=== PATIENT | female | born 1950 ===

== ENCOUNTER → 2022-01-31 09:47 | Outpatient (CLI) | payer MEDICARE, SELFPAY ==
[2022-01-31 12:42] LABS: COVID19 -Nasal RAPID Negative (Negative)
== END ==
PROVIDERS: Family Provider Family Medicine; PCP Family Medicine; Visit Provider Nurse Practitioner Family
DX: Z20.822 Contact with and (suspected) exposure to COVID-19 (principal)
CPT/HCPCS: 87635; C9803

== ENCOUNTER 2022-02-01 09:14 | Day surgery (SDC) | payer MEDICARE, SELFPAY ==
[2022-01-23 07:40] VITALS: BMI 28.3
[2022-02-01] VITALS (10 sets, daily range): BP systolic 92–117; BP diastolic 39–76; PULSE 65–90; RESP 10–20; TEMP 35.7–36.2; O2SAT 91–96; BMI 28.3
--- NOTE | 2022-02-01 06:00 | DI.RAD.S_ITS ---
PROCEDURE: XR KNEE RT 1TO2V INDICATIONS: prosthesis placement TECHNIQUE: 2 view(s) of the knee acquired. COMPARISON: None. FINDINGS: Bones: Patient is status post knee joint arthroplasty. Hardware components are in expected positions. Visualized bony structures are intact. Soft tissues: Overlying postoperative changes are noted. IMPRESSION: Expected immediate postoperative appearance, status post total right knee arthroplasty. Dictated by: Josemanuel Cheney M.D. on 02/01/2022 at 15:50 Approved by: Josemanuel Cheney M.D. on 02/01/2022 at 15:50
[2022-02-01] MEDS: LACTATED RINGERS 1,000 ML 42 ML IV (09:49)
[2022-02-01] MEDS: ACETAMINOPHEN 325 MG TABLET 975 MG PO (10:00)
[2022-02-01] MEDS: PREGABALIN 75 MG CAPSULE PO (10:00)
[2022-02-01] MEDS: CELECOXIB 200 MG CAPSULE PO (10:00)
--- NOTE | 2022-02-01 11:01 | PM.PREOP ---
Pre-operative Note COVID-19 COVID-19 status: Negative Result date/Date tested (Pos, Neg/Pending): 01/31/22 Interval Note History & Physical reviewed/Exam performed by Physician: Yes Changes to H&P: No
--- NOTE | 2022-02-01 11:14 | PM.OP.1 ---
Operative Date/Time/Diagnoses Date of procedure: 02/01/22 Time of procedure: 13:42 Pre-op diagnosis: Right knee osteoarthritis Post-op diagnosis: same Procedure & Clinicians Procedure: Right total knee replacement Same procedure as scheduled: Yes Indications: The patient has had progressively worsening right knee pain with radiographic changes consistent with arthritis. Non-operative management has failed and the patient has requested total knee replacement. The risks, benefits and alternatives to surgery were discussed with the patient prior to proceeding. Risks discussed included, but were not limited to, failure to relieve pain, stiffness, infection, nerve damage, deep venous thrombosis, pulmonary embolism, stroke, coma, heart attack, permanent paralysis and , as well as the potential need for eventual revision of the prosthetic. Surgeon: Marino Mcgovern Wind Turbine Erector: Jorge Rubio Click Yes if Unassisted: No Anesthesia Type: General, Spinal and Local Operative Notes Findings: Severe medial and patellofemoral osteoarthritis with large osteophytes. Closure Type: primary Specimen(s): none sent Prosthetic devices, grafts, tissues, transplants, or devices: Implants used in this procedure were manufactured by the [employer] and included the BCS II Journey total knee replacement with a size 4 right cobalt chromium femur, a size 3 right non porous tibial base plate, an 11 mm cross-linked polyethylene tibial insert and a 32 mm oval Jessi II patellar component. Applied: implant(s) Estimated Blood Loss (mL): 25 Blood products transfused: none Tourniquet time (min): 54 Procedure in detail: The patient was seen in the pre-operative area, where the patient identified the right knee as the operative site and this was marked with my initials. The patient received pre-operative antibiotics, and was taken to the operating room and placed on the operative table in the supine position. After satisfactory anesthesia, a full time staff interpreter out was performed. The right leg was encircled with a tourniquet about the proximal thigh, and the leg was prepared from the toes to the tourniquet with ChloroPrep in the usual fashion and draped through sterile drapes. The leg was elevated and exsanguinated with Eschmark bandage and the tourniquet inflated to 250 mmHg pressure. The knee was approached through an approximately 18 cm incision centered over the patella and carried into the knee through a medial parapatellar arthrotomy. The anterior osteophytes and soft tissues were removed. The rotational landmarks of [place]'s line and the transepicondylar axis were marked on the femur with electrocautery, and intramedullary guide holes for the femur and tibia were created. The distal femoral cut was made in 6 degrees of valgus using the intramedullary guide at the primary cut setting. The proximal tibial cut was then made using the intramedullary guide, taking 9 mm of bone off the less involved side. The extension gap was checked and the rotation of the femoral component confirmed with the gap balancing system. The anterior, posterior and chamfer cuts were then made. The posterior osteophytes and soft tissues were then removed. The posterior capsule was injected with part of a mixture of 60 ml 0.25% Marcaine mixed with 20 ml Exparel and 4 mg of morphine for post-operative pain control. The remainder of this mixture was injected into the capsule and subcutaneous tissues during cement curing. The tibia was prepared with the rotation set by an extra medullary guide. Trial tibial and femoral components were then placed and the intercondylar notch cut through the femoral trial. Range of motion was 0-135 degrees, with good stability throughout the range. The patella was then cut to accommodate the patellar prosthetic. There was no need for a lateral release. The trials were then removed, and the femoral hole plugged with a bone plug. The bone was prepared with pulsatile lavage, and dried with a sponge. Cement was applied and the final prosthetics placed. Excess cement was removed during and after cement curing. After confirming there was no extruded cement posteriorly, the final tibial insert was placed. The knee was copiously irrigated and the tourniquet deflated. Hemostasis was obtained. The capsule was closed with interrupted # 2 polyester suture. The subcutaneous layer was closed with 3-0 Vicryl, and the skin with a running 3-0 V-Lock suture and Dermabond. An Aquacel Ag dressing was applied and the patient was taken to recovery having tolerated the procedure well. Post-operative Condition: stable Disposition: PACU Plan for aftercare: The patient will be maintained on a standard total knee replacement protocol with weight bearing as tolerated. The patient will receive aspirin and sequential compression devices for DVT prophylaxis. The patient will be discharged home when safe for the home environment.
[2022-02-01] MEDS: CEFAZOLIN 2 GM/20 ML SYRINGE IV (12:03)
[2022-02-01] MEDS: TRANEXAMIC ACID 1,000 MG VIAL 1000 MG INJ ×2 (12:10→13:10)
--- NOTE | 2022-02-01 12:21 | SUR.OPER ---
Supine on padded OR bed. Pillow under head, arms secured on padded armboards <90 degree abduction. Safety belt across torso. Non-operative leg secured with tape over blanket over lower leg. Operative leg secured in [place] positioner. Foam padded brace at thigh of operative leg.
[2022-02-01] MEDS: BUPIVACAINE 0.25% (PF) 60 ML, EPINEPHrine 0.3 MG INJ (12:27)
[2022-02-01] MEDS: MORPHINE 4 MG/ML INJ INJ (12:27)
[2022-02-01] MEDS: BUPIVACAINE LIPOSOME 266 MG/20 ML VIAL INJ (12:41)
--- NOTE | 2022-02-01 14:06 | SUR.PHASEI ---
Report to Isabel DA SILVA
[2022-02-01] MEDS: LACTATED RINGERS 1,000 ML 100 ML IV (14:57)
--- NOTE | 2022-02-01 15:15 | PC.NURSE ---
Addendum entered by Radha Navarro R.N. 02/01/22 16:16: Pt feeling to lower extremities returning. Dsg CDI. B/P running in the low 100's Satisfactory post op course. Call light w/in reach, bed alarm on for pt safety. Continue w/plan of care. Original Note: Pt arrived from PACU @ 1420 Alert oriented. Denies discomfort at this time. Spo2 93% RA Continuous pulse ox applied. SCD on IVF infusing as per MD orders. Stable post op course. Call light w/in reach, bed alarm on for pt safety.
[2022-02-01] MEDS: IBUPROFEN 400 MG TABLET PO ×2 (16:09→20:56)
[2022-02-01] MEDS: ACETAMINOPHEN 325 MG TABLET 650 MG PO ×2 (16:09→20:55)
[2022-02-01] MEDS: ASPIRIN EC 81 MG TABLET PO (20:54)
[2022-02-01] MEDS: DOCUSATE 100 MG CAPSULE PO (20:54)
[2022-02-02 00:48] VITALS: RESP 16
[2022-02-02] MEDS: IBUPROFEN 400 MG TABLET PO ×4 (00:56→12:53)
[2022-02-02] MEDS: LACTATED RINGERS 1,000 ML 100 ML IV (00:58)
[2022-02-02 04:00] VITALS: BP 125/62; PULSE 73; RESP 16; TEMP 36.1; O2SAT 97
[2022-02-02] MEDS: OXYCODONE IR 5 MG TABLET PO ×3 (05:01→12:53)
[2022-02-02 06:41] LABS: Hematocrit 32.3 % (36-46); Hemoglobin 10.9 g/dL (12.0-16.0)
--- NOTE | 2022-02-02 07:30 | P.DS_ITS ---
History of Present Illness History of Present Illness Date Patient Seen: 02/02/22 Time Patient Seen: 07:31 Chief complaint: RT TKA *OPB* Discharge Providers Provider Date of admission: 02/01/2022 Discharge Date: 02/02/22 Primary care physician: Rashaun Alvarado MD Consults: 02/01/22 14:14 Consult to Discharge Planning Routine Comment: Consult to Physical Therapy Evaluate & Treat Comment: Physician Instructions: postop TKA protocol Consult to Respiratory Therapy Evaluate & Treat Comment: Physician Instructions: Evaluate and treat Discharge provider: Shalonda Nath PA-C Summary Hospital Course Discharge Diagnosis: s/p R TKA Hospital Course: Ms Wilkerson's hospital course was remarkable for foot drop on the right, which is likely due to nerve block given preoperatively. On POD#1 she was feeling well and wanted to go home. She was eating and voiding without difficulty. She was evaluated by PT prior to discharge. Exam Vital Signs (past 8 hours): - 02/02/22 00:48 02/02/22 04:00 Temperature 97.0 F L Pulse Rate 73 Respiratory Rate 16 16 Blood Pressure 125/62 Pulse Oximetry 97 Oxygen Delivery Method Room Air Oxygen Flow Rate 0 Narrative Exam Narrative: 5/5 strength in hip flexors, quadriceps, hamstrings, PF, EHL on right. DF 3/5 on right. 5/5 throughout left. Sensation to light touch intact throughout BLE. Calves soft, compressible, nontender and without palpable cords or masses. Const General: cooperative and healthy appearing Orientation: alert, awake and oriented x3 Objective Labs Result Diagrams: 02/02/22 05:55 Labs: Laboratory Results - last 24 hr 02/02/22 05:55 Hgb 10.9 L Hct 32.3 L PFSH Medical History Asthma Osteoarthritis Pre-diabetes Surgical History Hx of bilateral cataract extraction (2015) Hx of knee surgery (1964) Social History household members: spouse Smoking Status: Former smoker alcohol intake: current Discharge Assessment & Plan Assessment and Plan Assessment: POD# 1 s/p RIGHT total knee arthroplasty with foot drop following regional anesthetic. Plan of Treatment: D/c w/ multimodal pain control, ASA for VTE prophylaxis, outpt PT. Discharge Plan Discharge Plan Patient Disposition: Home Discharge orders & Medications Discharge Orders: Discharge (Order); Ordered 02/02/22 Ordered By: Suzan Stearns Prescriptions: New acetaminophen 500 mg capsule 500 mg PO Q4H MDD Max 3000 mg per day PRN (Reason: fever or pain) Qty: 90 0RF aspirin 81 mg Tablet,Delayed Release (Dr/Ec) 81 mg PO BID 42 Days Qty: 84 0RF Rx Instructions: Prevent blood clots docusate sodium 100 mg Capsule 100 mg PO BID PRN (Reason: Constipation from narcotic pain meds) Qty: 20 0RF ibuprofen 400 mg Tablet 400 mg PO Q4HR MDD Max 2400 mg per day PRN (Reason: Pain/inflammation) Qty: 90 0RF oxycodone 5 mg Tablet 5 mg PO Q3HR PRN (Reason: Pain, Moderate (4-6)) Qty: 42 0RF Continued acetaminophen 500 mg Tablet 500 mg PO BID PRN (Reason: pain) 0RF ibuprofen 200 mg Tablet 200 mg PO DAILY PRN (Reason: Pain) 0RF Follow up/Referrals: Rashaun Alvarado MD [Primary Care Provider] - Marino Mcgovern MD [Physician] - As previously scheduled (Follow up w/ Dr Mcgovern on 02/13/2022 @ 11:00 at [facility] in [place].) Diet/Activity/Treatments Diet: Diet as Tolerated Activity: Walk frequently! Cold/Heat Therapy: Ice to knee as needed for pain. Other treatments: Medications: -Aspirin 81mg twice daily x6 weeks to prevent blood clots. -OTC Tylenol 500 mg 1 tablet every 4 hours as needed for pain/fever. Max 6 tablets per day. -Ibuprofen 400 mg 1 tablet every 4 hours as needed for pain/inflammation. Max 2,400 mg per day. -Oxycodone 5 mg take 1-2 tablets every 4 hours as needed for moderate-severe pain (narcotic pain medication). -As needed medications: -Ducolax and /or MiraLax as needed for constipation from narcotic pain medications. -Pepcid AC as needed for stomach upset (usually from aspirin or ibuprofen). Dressing/Wound care: -Keep Aquacell dressing in place until postoperative follow-up office visit. -Okay to shower. Keep wound out of direct water stream. No soaking or submerging until all the scabs fall off (approximately 6 weeks). -Please call the office if dressing becomes wet, soiled, or saturated. Activities: -Weight-bearing as tolerated. Use front wheeled walker, and progress to cane when safe. -Continue with home exercises as directed by your physical therapist. -Elevate ?toes above the nose if you have significant swelling in your lower leg. (A wedge pillow is easiest.) -Ice your incision as needed for pain/inflammation/swelling. Protect your skin with a folded pillowcase. Follow-up: -Follow-up with your surgeon or PA in the office in 10-14 days after surgery. -Follow-up with your surgeon 6 weeks postoperatively. Call the office if you have chest pain, shortness of breath, significant swelling that will not resolve with elevating, fever over 101?, significantly worsening pain. [facility]: [phone] Skin/Wound/Dressing Care Dressing: May shower. Leave Aquacel dressing in place until follow up appointment. No bathing or otherwise soaking incision. Visit Report/Discharge Packet Instructions: DI for Knee Replacement Stand Alone Forms: Surgery Discharge Discharge Data Primary Care Provider: Rashaun Alvarado Attending Provider: Marino Mcgovern Quality VTE Deep Vein Thrombosis/Pulmonary Embolism Present on Admission: No
[2022-02-02 07:59] VITALS: BP 97/49; PULSE 64; RESP 18; TEMP 36.3; O2SAT 100
--- NOTE | 2022-02-02 08:37 | PC.NURSE ---
Addendum entered by Radha aNvarro R.N. 02/02/22 13:02: Pt escorted by staff via W/C to waiting vehicle D/C in satisfactory post op status,. Addendum entered by Radha Navarro R.N. 02/02/22 11:41: Home instructions given to pt w/understanding. [place] pass given. SL discontinued intact. Awaiting transportation. Original Note: Pt awake, SpO2 97% RA Dsg to surgical knee CDI. SL intact/patent. MD in to see, received orders for D/C. Pt planning the [address] to [place]. Working w/PT Med for discomfort prior to PT Call light w/in reach, pt calls appropriately for needs.
--- NOTE | 2022-02-02 09:12 | CM.DANOTE ---
DCP: Case received, EMR reviewed and met with patient. Introduced self and role. Was able to obtain information regarding patient's baseline activity status at home prior to her surgery. DCP assessment completed with information currently available. Patient is a 72 year old female who admitted yesterday morning to the care of the orthopedist team. PCP: Dr. Alvarado. Payer: confirmed: Medicare/AARP. Patient came to the hospital via private vehicle for a surgical procedure. Patient had right knee arthroplasty. Patient has history of unilateral post-traumatic osteoarthritis of the right knee. Met with patient in her room. She is alert and oriented, pleasant. She was in bed getting ready to work with Keisha Aponte. Patient resides in [place] with spouse, Sonny Rudolph. At her baseline, she is independent, [place], cane, crutches. Confirmed that her spouse will be able to assist her when she goes home. P: Patient has discharge orders to go home today after being cleared by Keisha. Rosie Bryan RN/[place] Support Specialist Discharge Planning/Care Management Advanced directive, confirm from FAMILY Start: 02/01/22 14:42 Freq: Q24H Status: Active Protocol: Document 02/01/22 14:42 KMD (Rec: 02/01/22 15:12 KMD [id number]) Advance Directive, confirm on record Time 15:12 Person contacted Patient Copy received No CM Discharge Assessment Start: 02/02/22 09:10 Freq: Status: Active Protocol: Document 02/02/22 09:11 (Rec: 02/02/22 09:12 [id number]) Discharge Planning Assessment Assigned [employer] Rosie Bryan RN/Mission Support Specialist Advance Directives? Yes Advance Directives on File No History Provided By Patient,Medical Record Prior Living Arrangements House Household Members spouse Type of transporation used prior to Drives own vehicle admit Independent with ADL's Yes Is patient alert and oriented? Yes Caregiver for Another No DME Already Rented / Owned FWW / Walker,Cane,Crutches Comment Patient has gotten these items for post surgery. Patient/Family Preference OP PT Therapy Barriers to Discharge No Discharge Plan Home Transportation Arrangement Spouse Referrals Initiated None needed Whiteboard Updated in Patient Room with Yes name and ext. # of [employer] Senior Officer Review Status In Process Next Review Type Continued Stay Review Pre-Anesthesia Assessment Start: 01/23/22 07:40 Freq: Status: Complete Protocol: Document 01/23/22 07:40 CAB (Rec: 01/23/22 09:26 CAB [id number]) Pre-Anesthesia Assessment Preferred Name Julia Patient Information Reviewed Via Phone Assessment Assessment Completed With Patient H&P Completed Within 30 Days No: Not identified at time of assessment Diagnostic Results BMP/CMP,CBC,EKG,Urinalysis Comment Outside labs/ECG scanned, COVID screen @ [facility] 01/31/22 Primary Care Provider Rashaun Alvarado Seen Specialist in Last 12 Months Yes Specialist Seen Orthopedist Primary Language Tamazight Comber Tender Required No Height 5 ft 5 in Weight 170 lb Body Mass Index (BMI) 28.3 Hearing Ability Normal Visual Impairment No Limitations Visual Assist None Dentition Type Teeth, Natural Present Barriers to Learning None Hx Anesthesia Reactions No Hx Family Anesthesia Reaction No Hx Malignant Hyperthermia No Hx Blood Transfusions No Anesthesia Review Requested No alcohol intake current alcohol intake frequency 0-2 drinks per day Smoking Status Former smoker how long ago did patient quit smoking Smoked in her 20's Substance Use Type does not use Pain Present Pain Reported Musculoskeletal Symptoms Abnormal Gait,Difficulty Walking,Joint Pain History of Falling (Recent or History of No ) Patient is completely paralyzed or No completely immobile Mental Status Oriented to own ability Is patient on oxygen? No Does patient have LESLIE/SOB No Hx Sleep Apnea No Currently Taking a Beta Isaias No Hx Chest Pain No Hx SOB No Hx Syncope or Dizziness No Anti-Coagulant Therapy No Has a Turn Out No Cardiac Testing No Hx Pacemaker/ICD No Pacemaker Rep Required? 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 Received a COVID vaccine? Yes Received all doses? Yes Marital Status Lives With spouse Prior Living Arrangements House Number of Floors (Floors) One Floor Support System Spouse Does the Patient Have Assistance After Yes Surgery Patient Discharge Plan Description Return Home Comment Pt not advised on length of stay per surgeon Additional comment Lives on [facility] Feels Safe in Current Environment Yes Been Physically Hurt or Threatened By a No Person in Current Environment Do you have thoughts of harming yourself None or others? Are you currently considering suicide? No Do you have a plan to hurt yourself or No Plan others? Do You Have Any Spiritual Beliefs That No May Affect Your HC Choices? Do You Have Any Cultural Practices That No May Affect Your HC Choices? Who Can We Speak to About Patient's Care Family, friends Identifying Code for Release of Patient Declines to issue Information Health Care Proxy/Next of Kin Ricardo () Health Care Proxy Emergency Contact Name Vandana (daughter) Emergency Contact Advance Directives? No Power of Owner Oral Surgeon No PAC Instructions Do not shave/clip surgical site,Durable medical equipment ,Medications to take/avoid, Nasal antibiotic,No ETOH/ petroleum product on skin DOS, NPO,Post-op transportation, Sturdy shoes/comfortable clothes,Do not bring valuables and remove jewelry
--- NOTE | 2022-02-02 09:18 | PT.IIE ---
Current Diagnoses Unilateral post-traumatic osteoarthritis, right knee (02/01/22) Surgery Performed Operation Date: 02/01/22 11:00 Actual Procedures p Total Knee Arthroplasty(Right) - Marino Mcgovern MD Medical History (Last Reviewed 02/01/22 @ 09:43 by Tavo Ferguson RN) Asthma Osteoarthritis Pre-diabetes Physical Therapy Inpatient Evaluation/Re-Eval M1 PT/OT-IP Prior Functional Status Start: 02/02/22 08:13 Freq: NEEDED Status: Active Protocol: Document 02/02/22 09:18 AW (Rec: 02/02/22 09:34 AW [id number]) Medical Review Prior Functional Status Medical History Reviewed Yes Communication WNL. No known deficits. Mobility and Gait Independent without assistive device. Pt notes a warm up limp due to knee pain but can walk her 3-acre property. She is not currently walking as far as she was late last year due to knee pain. Activities of Daily Living and IADL's Independent including driving Prior Functional Level (Other details) Pt reports one fall going up stairs in new shoes ~3 months ago but denies other falls. Social History Household Members spouse Living Arrangements House Number of Floors (Floors) One Floor Number of Stairs To Enter/Railing? 6 MARTHA with wide bilateral rails. Can only use one at a time. Home Environment Standard Height Toilet,Walk in Shower Home Equipment Front Wheel Walker,Straight Cane,Crutches,Raised Toilet Seat Without Armrests,Shower Seat without Backrest,Grab Bars Near Toilet Employment Status Retired Additional Social History Comment Pt lives in [place] with her spouse, Ricardo, who will be available and able to assist at discharge. M2 PT-IP Current Condition Start: 02/02/22 08:13 Freq: NEEDED Status: Active Protocol: Document 02/02/22 09:18 AW (Rec: 02/02/22 09:34 AW [id number]) Physical Therapy Current Condition Current Condition Evaluation Date 02/02/22 Treatment Diagnosis s/p R TKA; R foot drop; difficulty in walking Onset Date 02/01/22 M3 PT-IP Subjective Start: 02/02/22 08:13 Freq: NEEDED Status: Active Protocol: Document 02/02/22 09:18 AW (Rec: 02/02/22 09:34 AW [id number]) Subjective Physical Therapy Visit Type Type Initial Evaluation Visit Start Time 08:23 Visit Stop Time 09:18 Total Visit Minutes 55 Notes Pt's spouse was present throughout evaluation and participated in caregiver training. Physical Therapy Visit Comments Patient Comments Pt [place] to [place] the [address] back to [facility]. Patient Goals Walk longer distances with more confidence. Therapy Pain Assessment Pain When Pain Assessed During Mobility Pain Present Pain Present Pain Reported Location Right Knee Intensity 5 Scale Used Numeric (0 - 10) Pain Management Techniques Apply Cold,Timing of Activity with Medications M4 PT-IP Mobility and Gait Start: 02/02/22 08:13 Freq: NEEDED Status: Active Protocol: Document 02/02/22 09:18 AW (Rec: 02/02/22 12:03 AW [id number]) PT-Bed Mobility Assessment Supine to Sit Supine to Sit Standby Assistance Scooting Scooting to Edge of Bed Standby Assistance PT-Transfer Assessment Sit to and From Stand Sit to and from Stand Standby Assistance,Contact Guard Assistance,Use of Upper Extremities Equipment Transfer Assistive Device Gait Belt,Front Wheeled Walker Orthotic/Prosthetic Devices or Brace: No Transfers Transfer Destination Chair,Wheelchair Transfer Technique Stand Step Pivot Transfer Ability Level of Assist Standby Assistance Comments Mobility Comments Pt was lying in bed as PT arrived. Her spouse was present. She completed bed mobility SBA without apparent difficulty moving the operative leg. She sat up EOB and stood CGA using FWW. Educated pt on weightbearing status. Pt's spouse was able to don the gait belt. Pt walked in the room 15 feet with FWW CGA before transerring to the chair. Pt has right foot drop since surgery and was cued to increase hip flexion to ensure foot clearance. Gait was slow but pt was able to compensate for foot drop with increased hip flexion. Pt stood and walked out of the room SBA with FWW and transferred to w/ c SBA. She was escorted to the therapy stairs. She stood SBA and completed stair training. She walked 80 feet toward her room with FWW SBA and w/c follow. She sat on the chair and was escorted back to the room. Pt stated her pain was improved with activity. Pt was left with call light and tray table in reach, ice packs applied to right knee. Gait Assessment Gait Gait Assistance Required: Standby Assistance,Contact Guard Assist Distance (Feet) 80 Able to Maintain Weight Bearing Status Yes During Gait Assistive Devices Assistive Device Gait Belt,Front Wheeled Walker Orthotic/Prosthetic Devices or Brace: No Gait Deviations General Gait Pattern Antalgic,Decreased Stride Length,Decreased Feet Clearance,Narrow Based Gait, Step-to Gait Factors Limiting Gait Function Factors Limiting Gait Function Decreased Strength,Limited Range of Motion,Pain,Poor Balance Comments Gait Comments See mobillity comments for details. Pt has right foot drop since surgery but is able to compensate. Stair Climbing Assessment Evaluation Level of Assist On Stairs Minimal Assistance,1 Person Assistance Devices Stair Climbing Assistive Devices Right Railing Technique/Endurance Stair Climbing Direction Ascend and Descend Stair Climbing Technique Step to Step Number of Steps Climbed 3 Query Text: Stair Climbing Set # Repetitions (reps) 2 Comments Stair Climbing Comments Educated pt and spouse on technique. Pt's spouse was able to provide appropriate level of assist for ascent/ descent as pt used R HR and L RESIDENTIAL REAL ESTATE [employer]ENT from spouse. PT-Balance Assessment Sitting Balance and Reactions Static Sitting Balance Ability Normal Dynamic Sitting Balance Ability Normal Standing Balance and Reactions Static Standing Balance Ability Good Dynamic Standing Balance Ability Good M5 PT-IP Objective Assessments Start: 02/02/22 08:13 Freq: NEEDED Status: Active Protocol: Document 02/02/22 09:18 AW (Rec: 02/02/22 09:38 [id number]) Orientation Orientation/Cognition Level of Alertness Alert Orientation Name,Day of Week,Place, Situation Language Function Ability No Deficits Noted Safety Awareness Understands Safety Issues Memory Description No Deficits Noted Gross Range of Motion Lower Extremity ROM Assessment Within Functional Limits Strength Lower Extremity Strength Assessment Right Impaired Hip 4/5 Knee 3+/5 Ankle 1/5 Comments Strength Comments R ankle foot drop since surgery. Ortho suggests lingering effect of anesthesia . Sensation Assessment Sensation Gross Sensation Right LE Impaired Light Touch Impaired Proprioception (Position) Impaired Muscle Tone Muscle Tone WNL Yes M6 PT-IP Treatment Start: 02/02/22 08:13 Freq: NEEDED Status: Active Protocol: Document 02/02/22 09:18 AW (Rec: 02/02/22 09:38 [id number]) Physical Therapy Treatment Exercises Exercises Ankle Pumps,Quad Sets,Heel Slides,Passive Knee Extension Hang,Seated Knee Flexion/ Extension Education Education Provided Precautions,Weight Bearing Status,Post-Op Packet,Safety Other Treatments Other Treatment Performed Educated pt and spouse on importance of ROM in early phases of rehab, post-op exercises and activity recommendations. Pt's spouse completed caregiver training to assist with gait and stairs . M7 PT-IP Assessment and Plan Start: 02/02/22 08:13 Freq: NEEDED Status: Active Protocol: Document 02/02/22 09:18 AW (Rec: 02/02/22 09:43 AW [id number]) PT Summary Assessment and Plan Potential Rehabilitation Potential Good Status of Condition at Evaluation Evolving Summary Impairments Pain,ROM,Strength,Balance,Bed Mobility,Transfers,Gait Assessment Summary Mary Anne is a 72yo woman seen for PT evaluation on POD1 following R TKA. She is independent in all regards at baseline. She required SBA/CGA for mobility using FWW and min assist on stairs at this assessment. Her spouse was able to provide appropriate assist and cues on stairs. Spouse and pt's daughter will be available to assist at home . Pt is safe for discharge home with assist. She will need outpatient PT to address ROM, strength, gait, and balance. Frequency of Treatment Frequency Of Treatment Discharge Weight Bearing Status Weight Bearing Status Weight Bear as Tolerated Allowed Weight Bearing Amount (enter % WBAT RLE or #) (%) Recommendations To Nursing Amount of Assist Needed Standby Assistance,1 Person Assist Discharge Recommendations PT Discharge Recommendations Home with Assistance, Outpatient PT Transportation Needs at Discharge Private Vehicle
[2022-02-02] MEDS: ASPIRIN 81 MG CHEW TAB (09:30)
[2022-02-02] MEDS: ASPIRIN EC 81 MG TABLET PO (09:36)
[2022-02-02] MEDS: DOCUSATE 100 MG CAPSULE PO (09:36)
[2022-02-02] MEDS: ACETAMINOPHEN 325 MG TABLET 650 MG PO (09:37)
[2022-02-02 11:00] VITALS: O2SAT 97
== END 2022-02-02 13:03 | disposition home or self-care (01) ==
LOC: OR 09:17 → AC 09:18
PROVIDERS: Family Provider Family Medicine; PCP Family Medicine; Referring Provider Orthopaedic Surgery; Visit Provider Orthopaedic Surgery
PROC: 0SRC0JZ Replacement of Right Knee Joint with Synthetic Substitute, Open Approach (ICD-10-PCS; CPT 27447; principal; 2022-02-01 11:00)
DX: M17.11 Unilateral primary osteoarthritis, right knee (principal); M25.761 Osteophyte, right knee
CPT/HCPCS: 27447; 36415; 73560; 85014; 85018; 97110; 97116; 97161; C1776; C1713; C9290; J0171; J0690; J2250; J2270; J2274; J3010

== ENCOUNTER 2022-07-18 18:06 | Observation (INO) | payer MEDICARE, SELFPAY ==
[2022-02-01 14:30] VITALS: BMI 28.3
[2022-07-18] VITALS (12 sets, daily range): BP systolic 138–169; BP diastolic 69–94; PULSE 71–93; RESP 18–25; TEMP 36.6; O2SAT 94–98
--- NOTE | 2022-07-18 18:18 | DI.RAD.S_ITS ---
PROCEDURE: XR CHEST 1V INDICATIONS: Possible stroke TECHNIQUE: One view of the chest was acquired. COMPARISON: None. FINDINGS: Surgical changes and devices: None. Lungs and pleura: Lungs are clear. No pleural effusions or pneumothorax. Mediastinum: Mediastinal contours appear normal. Heart size is normal. Bones and chest wall: No suspicious bony lesions. Overlying soft tissues appear unremarkable. IMPRESSION: No acute cardiopulmonary findings Approved by: Bruce Humphrey M.D. on 07/18/2022 at 18:43
--- NOTE | 2022-07-18 18:18 | DI.CT.S_ITS ---
PROCEDURE: CT HEAD/BRAIN WO CON INDICATIONS: Positive BE-FAST, Stroke symptoms, out of TPA window. TECHNIQUE: Noncontrast 4.5 mm thick angled axial sections acquired from the foramen magnum to the vertex, with coronal and sagittal reformats. For radiation dose reduction, the following was used: automated exposure control, adjustment of mA and/or kV according to patient size. COMPARISON: [facility], MR, BRAIN W&WO CONTRAST, 01/11/2016, 13:03. FINDINGS: Image quality: Excellent. CSF spaces: Basal cisterns are patent. No extra-axial fluid collections. Ventricles are normal in size and shape. Brain: No midline shift. No intracranial masses or hemorrhage. Lozano-white matter interface is normal. Skull and face: Calvarium and visualized facial bones are intact, without suspicious lesions. Sinuses: Visualized sinuses and mastoids are clear. IMPRESSION: No intracranial hemorrhage or other acute intracranial abnormality. Dictated by: Osito Horn M.D. on 07/18/2022 at 18:53 Approved by: Osito Horn M.D. on 07/18/2022 at 18:59
--- NOTE | 2022-07-18 18:18 | DI.CT.S_ITS ---
PROCEDURE: CT ANGIO HEAD AND NECK INDICATIONS: Possible stroke TECHNIQUE: After the administration of intravenous contrast, 1 mm thick sections acquired from the aortic arch through the [place]. Post-contrast 4.5 mm thick sections then re-acquired from the foramen magnum to the vertex. 3-dimensional eqjfwvw-tcbchispj-podrzhnqzk (MIP) and/or volume rendering reformats were acquired of the central intracranial vasculature and neck separately. For radiation dose reduction, the following was used: automated exposure control, adjustment of mA and/or kV according to patient size. COMPARISON: [facility], , ANGIO HEAD WITHOUT CONTRAST, 01/11/2016, 12:53. FINDINGS: Image quality: Excellent. BRAIN: CSF spaces: Ventricles are normal in size and shape. Basal cisterns are patent. No extra-axial fluid collections. Brain: No midline shift. No intracranial bleeds or masses. Lozano-white matter interface appears intact. Skull and face: Calvarium and facial bones appear intact, without suspicious lesions. Orbits appear normal. Sinuses: Sinuses and mastoids are clear. HEAD CT ANGIOGRAPHY: Anterior circulation: Intracranial internal carotid arteries are normal in size and flow. The flow within the paired anterior cerebral arteries is normal and symmetric. The flow within the middle cerebral arteries is normal and symmetric. The anterior communicating artery is seen. No aneurysms are seen. Posterior circulation: Visualized portions of the vertebral arteries demonstrate normal caliber. Right dominant system similar in appearance to before. Basilar artery is unremarkable. Flow within the posterior cerebral arteries is normal and symmetric. No aneurysms are seen. NECK CT ANGIOGRAPHY: Carotid system: The great vessels demonstrate a conventional anatomy as they arise from the aortic arch. The origins of the common carotid arteries appear patent. The common carotid arteries demonstrate normal caliber and courses. The bifurcation regions are both widely patent. The internal carotid arteries demonstrate normal calibers and courses. Posterior circulation: The origins of the vertebral arteries both appear widely patent. The more superior extracranial portions of both vertebral arteries also demonstrate normal courses and calibers. Soft tissues: Visualized neck soft tissues demonstrate no significant abnormalities. Bones: No suspicious bony lesions. IMPRESSION: No large vessel occlusion or high-grade stenosis visualized. Any quantitative measurements of stenosis were performed using NASCET criteria. Dictated by: Osito Horn M.D. on 07/18/2022 at 18:59 Approved by: Osito Horn M.D. on 07/18/2022 at 19:18
[2022-07-18 18:33] LABS: Add Manual Diff / Slide Review NO; Basophils Absolute Auto 100 /uL (0-100); Eosinophils Absolute Auto 200 /uL (0-450); Eosinophils Percent Auto 3.2 % (2-4); Hematocrit 37.2 % (36-46); Hemoglobin 12.7 g/dL (12.0-16.0); Lymphocytes Absolute Auto 1600 /uL (1100-4500); Lymphocytes Percent Auto 26.4 % (25-40); Mean Corpuscular HGB Conc 34.1 % (30-36); Mean Corpuscular Volume 87.9 fL (80-100); Monocytes Absolute Auto 700 /uL (0-900); Monocytes Percent Auto 11.2 % (3-14); Neutrophils Absolute Auto 3400 /uL (1500-7000); Neutrophils Percent Auto 58.2 % (50-75); Platelet Count 264 X10^3/uL (150-400); Red Blood Cell Count 4.23 X10^6/uL (4.0-5.2); Red Cell Distribution Width 13.9 % (11.6-14.8); White Blood Cell Count 5.9 X10^3/uL (4.5-11.0)
[2022-07-18 18:39] LABS: Prothrombin Time 11.1 SECONDS (10.1-12.7)
[2022-07-18 18:41] LABS: PTT Partial Thromboplastin Tim 28 SECONDS (26-36)
[2022-07-18 18:52] LABS: Alanine Aminotransferase 24 IU/L (<35); Albumin 4.2 g/dL (3.5-5.0); Albumin Globulin Ratio 1.1 (1.0-2.8); Alkaline Phosphatase 95 U/L (38-126); Aspartate Aminotransferase 26 IU/L (14-36); BUN Creatinine Ratio 24.1 (6-22); Bilirubin Total 0.4 mg/dL (0.2-1.3); Blood Urea Nitrogen 21 mg/dL (7-17); Calcium 9.6 mg/dL (8.4-10.2); Carbon Dioxide 29 mmol/L (22-32); Chloride 104 mmol/L (98-107); Creatine Kinase 41 U/L (30-135); Estimated Glomerular Filt Rate > 60 mL/min (>60); Glucose 109 mg/dL (80-110); HEMOLYSIS < 15 (0-50); Magnesium 2.2 mg/dL (1.6-2.3); Potassium 4.7 mmol/L (3.4-5.1); Sodium 141 mmol/L (137-145); Total Protein 8.2 g/dL (6.3-8.2)
--- NOTE | 2022-07-18 18:56 | PC.NURSE ---
Pt reports double vision when she looks down and to the sides (but not straight on) that began yesterday at 0700 when she woke up. Nothing makes it better or worse. Pt reports similar episode of double vision in 2016 that was due to an infected tooth. Pt denies any pain.
--- NOTE | 2022-07-18 18:58 | ED.NEUROSD ---
HPI - Neuro Symptoms/Deficit General Chief Complaint: Neuro Symptoms/Deficit Stated Complaint: Double Vision Stroke Time Seen by Provider: 07/18/22 18:40 Source: patient Mode of arrival: Ambulatory History of Present Illness HPI Narrative: 72-year-old female former smoker without any significant chronic medical history presents from the ophthalmology office in the chief complaint of double vision since Sunday night. She states she 1st noticed it Sunday evening when she was attempting to read and since then has had double vision which initially was only when looking to the side or down but now is presenting when she looks straight ahead as well. It is only with both eyes open and she states the images tend to be slightly askew as opposed to directly horizontal or vertical of 1 another. She denies any recent trauma or head injury. She denies other symptoms such as dizziness, weakness or lightheadedness. She denies any confusion or trouble with speech nor any extremity numbness, tingling or weakness. She presented initially to Dr. Yancey's office and had a full evaluation including dilated eye exam and was sent here as her exam was essentially normal. She is outside of any window for tPA or other intervention but still taken essentially directly to CT Related Data Home Medications Medication Instructions Recorded Confirmed acetaminophen 500 mg tablet 500 mg PO BID PRN pain 01/23/22 01/23/22 ibuprofen 200 mg tablet 200 mg PO DAILY PRN Pain 01/23/22 01/23/22 Previous Rx's Medication Instructions Recorded acetaminophen 500 mg capsule 500 mg PO Q4H PRN fever or pain 02/02/22 #90 caps docusate sodium 100 mg capsule 100 mg PO BID PRN Constipation 02/02/22 from narcotic pain meds #20 caps ibuprofen 400 mg tablet 400 mg PO Q4HR PRN 02/02/22 Pain/inflammation #90 tabs oxycodone 5 mg tablet 5 mg PO Q3HR PRN Pain, Moderate 02/02/22 (4-6) #42 tabs Allergies Allergy/AdvReac Type Severity Reaction Status Date / Time egg Allergy Intermediate Vomiting Verified 02/01/22 09:46 latex [LATEX] Allergy Mild ITCHING Verified 02/01/22 09:46 Review of Systems Review of Systems Narrative: GENERAL: Denies chills, fatigue, malaise, fever, sweats. HEENT: See HPI RESPIRATORY: Denies dyspnea, cough, wheezing, hemoptysis, sputum. CARDIOVASCULAR: Denies chest pain, palpitations, orthopnea, edema, GASTROINTESTINAL: Denies nausea, vomiting, abdominal pain, diarrhea, constipation, melena. : Denies dysuria, frequency, incontinence, hematuria, urinary retention. MUSCULOSKELETAL: denies weakness, joint pain, or bony pain SKIN: Denies rash, skin lesions, or other NEUROLOGIC: See HPI PSYCHIATRIC: No concerning psychosocial issues. 12 point review of systems is negative except for those stated above Patient History Medical History Asthma Osteoarthritis Pre-diabetes Surgical History Hx of bilateral cataract extraction (2016) Hx of knee surgery (1964) Social History household members: spouse Smoking Status: Former smoker alcohol intake: current Smoking Status: Former smoker alcohol intake frequency: 0-2 drinks per day Substance Use Type: does not use Exam Narrative Exam Narrative: GENERAL: [72] year old patient appears stated age. Well-developed patient, in mild distress. GCS 15 HEAD: Atraumatic. Normocephalic. EYES: Pupils equal round and reactive. Extraocular motions intact. No scleral icterus. No injection or drainage. ENT: Nose without bleeding, purulent drainage. Throat without erythema, tonsillar hypertrophy or exudate. Airway patent. NECK: Trachea midline. Non tender CARDIOVASCULAR: Regular rate and rhythm without murmurs, gallops, or rubs. RESPIRATORY: Clear to auscultation. Breath sounds equal bilaterally. No wheezes, rales, or rhonchi. GASTROINTESTINAL: Abdomen soft, non-tender, nondistended. EXTREMITIES: No edema or joint tenderness. BACK: Nontender without deformity or crepitance. No flank tenderness. NEURO: AOx3. SKIN: No rash or erythema of visible areas NIH Stroke Scale 1a. LOC: Patient is alert and keenly responsive (0) 1b. LOC Questions: Patient answers both LOC questions accurately (0) 1c. LOC Commands: Patient performs both tasks correctly (0) 2. Best Gaze: Normal (0) 3. Visual: No visual loss (0) 4. Facial palsy: Normal symmetrical movements (0) 5. Motor arm: No drift (0) 6. Motor leg: No drift (0) 7. Limb ataxia: Absent (0) 8. Sensory: Normal (0) 9. Best language: No aphasia; normal (0) 10. Dysarthria: Normal (0) 11. Extinction and inattention: No abnormality (0) NIHSS: 0 Initial Vital Signs Initial Vital Signs: Vital Signs Temperature 97.9 F 07/18/22 18:11 Pulse Rate 82 07/18/22 18:11 Respiratory Rate 18 07/18/22 18:11 Blood Pressure 157/74 H 07/18/22 18:11 Pulse Oximetry 98 07/18/22 18:11 Oxygen Delivery Method 07/18/22 18:11 Course Orders Ordered: ED Orders 07/18/22 18:18 CT angio head and neck Stat CT head/brain wo con Stat XR chest 1V Stat EKG-12 Lead Stat 07/18/22 18:26 COVID19 - ADMIT (STAFF PSYCHIATRIST swab/PCR) Stat Complete Blood Count AUTO DIFF Stat Comprehensive Metabolic Panel Stat Hemoglobin A1C% w Est Avg Glu Urgent Lipid Panel Urgent Magnesium Stat NT-proBNP (BNP-Adult 18+) Urgent Partial Thromboplastin Time Stat Prothrombin Time INR Stat Troponin & CK Cardiac Panel Stat 07/18/22 18:52 Urine Drug Screen, Rapid Stat 07/18/22 20:21 MR head/brain wo/w con Stat Education, smoking cessation ONGOING 07/18/22 20:24 Consult to Occupational Therapy Evaluate & Treat EC echo doppler complete Urgent 07/18/22 20:25 Consult to Physical Therapy Evaluate & Treat 07/19/22 01:00 Trop I [Troponin I] Q6H 07/19/22 05:00 Basic Metabolic Panel Routine 07/19/22 07:00 Trop I [Troponin I] Q6H Acetaminophen (Acetaminophen 325 Mg Tablet) 650 mg PO Q6HR PRN PRN Reason: Fever/Mild Pain (1-3) Last Admin: 07/18/22 22:04 Dose: 650 mg Documented By: BS Atorvastatin Calcium (Atorvastatin 20 Mg Tablet) 80 mg PO BEDTIME GIL Last Admin: 07/18/22 22:04 Dose: 80 mg Documented By: BS Clopidogrel Bisulfate (Clopidogrel 75 Mg Tablet) 75 mg PO DAILY [facility] Enoxaparin Sodium (Enoxaparin 40 Mg/0.4 Ml Syringe) 40 mg SUBCUT DAILY [facility] Magnesium Hydroxide (Magnesium Hydroxide 30 Ml Udc) 30 ml PO DAILY PRN PRN Reason: Constipation Ondansetron HCl (Ondansetron 4 Mg/2 Ml Inj) 4 mg IV Q4HR PRN PRN Reason: Nausea Oxycodone HCl (Oxycodone Ir 5 Mg Tablet) 5 mg PO Q3HR PRN PRN Reason: Pain, Moderate (4-6) Discontinued Medications Ondansetron HCl (Ondansetron 4 Mg/2 Ml Inj) 4 mg IV Q4HR [facility] Last Admin: 07/19/22 02:10 Dose: Not Given Documented By: Admin: 07/18/22 22:10 Dose: Not Given Documented By: SB Vital Signs Vital signs: Vital Signs - 8 hr 07/18/22 18:24 07/18/22 18:25 07/18/22 18:25 Pulse Rate 93 H Respiratory Rate Blood Pressure 169/94 H Pulse Oximetry 95 96 Oxygen Delivery Method Oxygen Flow Rate 07/18/22 18:51 07/18/22 19:00 07/18/22 19:07 Pulse Rate 83 93 H Respiratory Rate 24 25 H Blood Pressure 138/84 Pulse Oximetry 97 Oxygen Delivery Method Oxygen Flow Rate 07/18/22 19:07 07/18/22 19:30 07/18/22 19:30 Pulse Rate 82 75 Respiratory Rate 23 Blood Pressure 140/69 Pulse Oximetry 97 96 Oxygen Delivery Method Oxygen Flow Rate 07/18/22 20:00 07/18/22 20:00 07/18/22 20:30 Pulse Rate 75 Respiratory Rate 20 Blood Pressure 145/73 H 143/85 H Pulse Oximetry 94 Oxygen Delivery Method Oxygen Flow Rate 07/18/22 20:30 07/18/22 22:19 07/18/22 22:20 Pulse Rate 72 76 71 Respiratory Rate 18 Blood Pressure Pulse Oximetry 97 97 98 Oxygen Delivery Method Oxygen Flow Rate 07/18/22 22:20 07/19/22 00:08 07/19/22 00:08 Pulse Rate 75 Respiratory Rate 16 Blood Pressure 145/89 H 127/74 Pulse Oximetry 96 Oxygen Delivery Method Oxygen Flow Rate 07/18/22 20:21 Pulse Rate Respiratory Rate Blood Pressure Pulse Oximetry 98 Oxygen Delivery Method Room Air Oxygen Flow Rate 0 MDM - Neuro Symptoms/Deficit Lab Data Result diagrams: 07/18/22 18:26 07/18/22 18:26 Labs: Lab Results 07/18/22 07/18/22 07/18/22 Range/Units 18:26 18:26 18:26 WBC 5.9 (4.5-11.0) X10^3/uL RBC 4.23 (4.0-5.2) X10^6/uL Hgb 12.7 (12.0-16.0) g/dL Hct 37.2 (36-46) % MCV 87.9 (80-100) fL MCH 30.0 (26-34) PG MCHC 34.1 (30-36) % RDW 13.9 (11.6-14.8) % Plt Count 264 (150-400) X10^3/uL Neut % (Auto) 58.2 (50-75) % Lymph % (Auto) 26.4 (25-40) % [place] % (Auto) 11.2 (3-14) % Eos % (Auto) 3.2 (2-4) % Baso % (Auto) 1.0 (0-2) % Neut # (Auto) 3400 (4033-7454) /uL Lymph # (Auto) 1600 (2828-2011) /uL [place] # (Auto) 700 (0-900) /uL Eos # (Auto) 200 (0-450) /uL Baso # (Auto) 100 (0-100) /uL PT 11.1 (10.1-12.7) SECONDS INR 1.0 (0.9-1.3) APTT 28 (26-36) SECONDS Sodium 141 (137-145) mmol/L Potassium 4.7 (3.4-5.1) mmol/L Chloride 104 (98-107) mmol/L Carbon Dioxide 29 (22-32) mmol/L BUN 21 H (7-17) mg/dL Creatinine 0.87 (0.52-1.04) mg/dL Estimated GFR > 60 (>60) mL/min BUN/Creatinine Ratio 24.1 H (6-22) Glucose 109 (80-110) mg/dL Hemoglobin A1c (4.0-6.0) % Calcium 9.6 (8.4-10.2) mg/dL Magnesium 2.2 (1.6-2.3) mg/dL Total Bilirubin 0.4 (0.2-1.3) mg/dL AST 26 (14-36) IU/L ALT 24 (<35) IU/L Alkaline Phosphatase 95 (38-126) U/L Total Creatine Kinase 41 (30-135) U/L CK-MB (CK-2) TNP CK-MB (CK-2) Rel Index TNP Troponin I < 0.012 (0.01-0.034) ng/mL NT-Pro-B Natriuret Pep (<125) pg/mL Total Protein 8.2 (6.3-8.2) g/dL Albumin 4.2 (3.5-5.0) g/dL Globulin 4.0 (1.7-4.1) g/dL Albumin/Globulin Ratio 1.1 (1.0-2.8) Triglycerides (35-150) mg/dL Cholesterol (140-199) mg/dL LDL Cholesterol, Calc (<100) mg/dL HDL Cholesterol (40-60) mg/dL U Opiates 300ng/mL cut (Negative) Ur Oxycodone Screen (Negative) Urine Methadone Screen (Negative) Ur Barbiturates Screen (Negative) U Tricyclic Antidepress (Negative) Ur Phencyclidine Scrn (Negative) Ur Amphetamines Screen (Negative) U Methamphetamines Scrn (Negative) Ur MDMA Scrn (Ecstasy) (Negative) U Benzodiazepines Scrn (Negative) Urine Cocaine Screen (Negative) U Marijuana (THC) Screen SARS-CoV-2 (PCR) (Negative) 07/18/22 07/18/22 07/18/22 Range/Units 18:26 18:26 18:26 WBC (4.5-11.0) X10^3/uL RBC (4.0-5.2) X10^6/uL Hgb (12.0-16.0) g/dL Hct (36-46) % MCV (80-100) fL MCH (26-34) PG MCHC (30-36) % RDW (11.6-14.8) % Plt Count (150-400) X10^3/uL Neut % (Auto) (50-75) % Lymph % (Auto) (25-40) % [place] % (Auto) (3-14) % Eos % (Auto) (2-4) % Baso % (Auto) (0-2) % Neut # (Auto) (1450-7089) /uL Lymph # (Auto) (3741-8692) /uL [place] # (Auto) (0-900) /uL Eos # (Auto) (0-450) /uL Baso # (Auto) (0-100) /uL PT (10.1-12.7) SECONDS INR (0.9-1.3) APTT (26-36) SECONDS Sodium (137-145) mmol/L Potassium (3.4-5.1) mmol/L Chloride (98-107) mmol/L Carbon Dioxide (22-32) mmol/L BUN (7-17) mg/dL Creatinine (0.52-1.04) mg/dL Estimated GFR (>60) mL/min BUN/Creatinine Ratio (6-22) Glucose (80-110) mg/dL Hemoglobin A1c 5.8 (4.0-6.0) % Calcium (8.4-10.2) mg/dL Magnesium (1.6-2.3) mg/dL Total Bilirubin (0.2-1.3) mg/dL AST (14-36) IU/L ALT (<35) IU/L Alkaline Phosphatase (38-126) U/L Total Creatine Kinase (30-135) U/L CK-MB (CK-2) CK-MB (CK-2) Rel Index Troponin I (0.01-0.034) ng/mL NT-Pro-B Natriuret Pep (<125) pg/mL Total Protein (6.3-8.2) g/dL Albumin (3.5-5.0) g/dL Globulin (1.7-4.1) g/dL Albumin/Globulin Ratio (1.0-2.8) Triglycerides 97 (35-150) mg/dL Cholesterol 224 H (140-199) mg/dL LDL Cholesterol, Calc 156 H (<100) mg/dL HDL Cholesterol 49 (40-60) mg/dL U Opiates 300ng/mL cut (Negative) Ur Oxycodone Screen (Negative) Urine Methadone Screen (Negative) Ur Barbiturates Screen (Negative) U Tricyclic Antidepress (Negative) Ur Phencyclidine Scrn (Negative) Ur Amphetamines Screen (Negative) U Methamphetamines Scrn (Negative) Ur MDMA Scrn (Ecstasy) (Negative) U Benzodiazepines Scrn (Negative) Urine Cocaine Screen (Negative) U Marijuana (THC) Screen SARS-CoV-2 (PCR) Negative (Negative) 07/18/22 07/18/22 Range/Units 18:26 18:52 WBC (4.5-11.0) X10^3/uL RBC (4.0-5.2) X10^6/uL Hgb (12.0-16.0) g/dL Hct (36-46) % MCV (80-100) fL MCH (26-34) PG MCHC (30-36) % RDW (11.6-14.8) % Plt Count (150-400) X10^3/uL Neut % (Auto) (50-75) % Lymph % (Auto) (25-40) % [place] % (Auto) (3-14) % Eos % (Auto) (2-4) % Baso % (Auto) (0-2) % Neut # (Auto) (4389-8598) /uL Lymph # (Auto) (7134-6761) /uL [place] # (Auto) (0-900) /uL Eos # (Auto) (0-450) /uL Baso # (Auto) (0-100) /uL PT (10.1-12.7) SECONDS INR (0.9-1.3) APTT (26-36) SECONDS Sodium (137-145) mmol/L Potassium (3.4-5.1) mmol/L Chloride (98-107) mmol/L Carbon Dioxide (22-32) mmol/L BUN (7-17) mg/dL Creatinine (0.52-1.04) mg/dL Estimated GFR (>60) mL/min BUN/Creatinine Ratio (6-22) Glucose (80-110) mg/dL Hemoglobin A1c (4.0-6.0) % Calcium (8.4-10.2) mg/dL Magnesium (1.6-2.3) mg/dL Total Bilirubin (0.2-1.3) mg/dL AST (14-36) IU/L ALT (<35) IU/L Alkaline Phosphatase (38-126) U/L Total Creatine Kinase (30-135) U/L CK-MB (CK-2) CK-MB (CK-2) Rel Index Troponin I (0.01-0.034) ng/mL NT-Pro-B Natriuret Pep 58 (<125) pg/mL Total Protein (6.3-8.2) g/dL Albumin (3.5-5.0) g/dL Globulin (1.7-4.1) g/dL Albumin/Globulin Ratio (1.0-2.8) Triglycerides (35-150) mg/dL Cholesterol (140-199) mg/dL LDL Cholesterol, Calc (<100) mg/dL HDL Cholesterol (40-60) mg/dL U Opiates 300ng/mL cut Negative (Negative) Ur Oxycodone Screen Negative (Negative) Urine Methadone Screen Negative (Negative) Ur Barbiturates Screen Negative (Negative) U Tricyclic Antidepress Negative (Negative) Ur Phencyclidine Scrn Negative (Negative) Ur Amphetamines Screen Negative (Negative) U Methamphetamines Scrn Negative (Negative) Ur MDMA Scrn (Ecstasy) Negative (Negative) U Benzodiazepines Scrn Negative (Negative) Urine Cocaine Screen Negative (Negative) U Marijuana (THC) Screen TNP SARS-CoV-2 (PCR) (Negative) Point of Care Testing Glucose POC 100 Urine Dip Bedside Urine Glucose Negative Bedside Urine Bilirubin - Negative Bedside Urine Ketone - Negative Urine Specific [place] 1.015 Bedside Urine Occult Blood - Negative Bedside Urine pH 6.5 Bedside Urine Protein - Negative Bedside Urine Urobilinogen - Negative Bedside Urine Nitrite - Negative Bedside Urine Leukocytes - Negative Esterase Imaging Data CT scan - head: Radiologist's Impression: Mary Anne Wilkerson??72??F??1950 ? Allergy/Adv: egg, latex Close Head/Neck CTA 07/18/[address] (Signed) Osito Horn - 07/18/22 Chest X-Ray 07/18/22 Telemetry Strips 02/01/22 Knee X-Ray (Signed) Josemanuel Cheney - 02/01/22 Outside EKG 12/07/20 Launch?[place] [address] CT Scan Report Signed Patient: Mary Anne Wilkerson MR#: [id number] : 1950 Acct:[id number] Age/Sex: 72 / F Date of Service: 07/18/22 Loc: ED Accession Number: [id number] ?? Procedure: CT head/brain wo con Ordering Provider: Milton Colbert D.O. PROCEDURE:? CT HEAD/BRAIN WO CON ? INDICATIONS:? Positive BE-FAST, Stroke symptoms, out of TPA window. ? TECHNIQUE:? Noncontrast 4.5 mm thick angled axial sections acquired from the foramen magnum to the vertex, with coronal and sagittal reformats.? For radiation dose reduction, the following was used:? automated exposure control, adjustment of mA and/or kV according to patient size.? ? COMPARISON:? [facility], MR, BRAIN W&WO CONTRAST, 01/11/2016, 13:03. ? FINDINGS:? Image quality:? Excellent.? ? CSF spaces:? Basal cisterns are patent.? No extra-axial fluid collections.? Ventricles are normal in size and shape.? ? Brain:? No midline shift.? No intracranial masses or hemorrhage.? Lozano-white matter interface is normal.? ? Skull and face:? Calvarium and visualized facial bones are intact, without suspicious lesions.? ? Sinuses:? Visualized sinuses and mastoids are clear.? ? IMPRESSION:? No intracranial hemorrhage or other acute intracranial abnormality. ? ? Dictated by: Osito Horn M.D. on 07/18/2022 at 18:53 ? ? Approved by: Osito Horn M.D. on 07/18/2022 at 18:59 ? ECG Data Interpretation: [1846] EKG is normal sinus rhythm rate [80 ] and free of any signs of ischemia or ectopy. No ST segmental elevation or depression. No T wave inversions Discharge Plan Departure Patient Disposition: Admitted As Inpatient Clinical Impression: Cerebrovascular accident Admit Date/Time: 07/19/22 00:20 Admit Provider: Jaylene Burk
[2022-07-18 19:04] LABS: Troponin I < 0.012 ng/mL (0.01-0.034)
[2022-07-18 19:30] LABS: COVID19 - ADMIT (NP swab/PCR) Negative (Negative)
--- NOTE | 2022-07-18 19:32 | PC.NURSE ---
NIH, however pt has constant double vision when looking down or to the side.
[2022-07-18 19:40] LABS: UR Morphine/Opiate cutoff 300 Negative (Negative); Ur Creatinine Normal (Normal); Ur Specific Gravity Normal (Normal); Urine Amphetamines Negative (Negative); Urine Barbiturates Negative (Negative); Urine Benzodiazepines Negative (Negative); Urine Cocaine Negative (Negative); Urine MDMA Negative (Negative); Urine Methadone Negative (Negative); Urine Methamphetamines Negative (Negative); Urine Oxycodone Negative (Negative); Urine Phencyclidine Negative (Negative); Urine Tricyclic Antidepressant Negative (Negative); Urine pH Normal (Normal)
--- NOTE | 2022-07-18 20:21 | DI.MRI.S_ITS ---
PROCEDURE: MR HEAD/BRAIN WO/W CON INDICATIONS: Neuro deficit /TIA r/o TECHNIQUE: Noncontrast axial T1 spin echo, axial T2 fast spin echo, sagittal and axial FLAIR, coronal T2 fast spin echo, axial gradient echo, axial diffusion and ADC through the brain. After the administration of contrast, axial and coronal and sagittal 3D VIBE or T1 spin echo with fat saturation through the brain. COMPARISON: [facility], CT, CT HEAD/BRAIN WO CON, 07/18/2022, 18:24. [facility], CT, CT ANGIO HEAD AND NECK, 07/18/2022, 18:24. [facility], MR, BRAIN W&WO CONTRAST, 01/11/2016, 13:03. FINDINGS: Image quality: Excellent. CSF Spaces: Basal cisterns are patent. No extra-axial fluid collections. Ventricles are normal in size and shape. Brain: Diffusion-weighted images demonstrate no acute infarcts. No intracranial hemorrhage, mass, or mass effect. No abnormal intracranial enhancement. The brainstem appears normal. Normal intravascular flow voids are present. Skull and face: Calvarial marrow is normal in signal. Orbits appear normal. Sinuses: Sinuses and mastoids appear clear. IMPRESSION: 1. No infarct or other acute intracranial abnormality. Dictated by: Jesse Caraballo M.D. on 07/18/2022 at 22:04 Approved by: Jesse Caraballo M.D. on 07/18/2022 at 22:06
--- NOTE | 2022-07-18 20:24 | DI.ECHO.S_ITS ---
[facility] +---------+ : : [address] [place] : : : : [id number] : : : : Phone: [phone] Echocardiogram Report + + :Name: ABBY MOLINA Study Date: 07/19/2022 Height: 65 in : :[facility] ReadingLocation: Weight: 170 lb : : Gender: Female BSA: 1.8 m2 : :: 1950 Age: 72 yrs BP: 141/67 mmHg: :Reason For Study: NEURODEFICIT, TIA : :Ordering Physician: DARIN, : :TARIK Performed By: Rianna Sawyer : :Referring: TARIK WEBSTER : + + Interpretation Summary Normal sinus rhythm. Normal LV size and wall thickness. Normal wall motion and left ventricular systolic function. Ejection fraction is 60-65%. Stage I diastolic dysfunction. There is mild mitral annular calcification. Otherwise no significant valvular abnormalities. Interatrial septum is mobile. Normal chamber sizes. No patent foramen ovale based on agitated saline study and color flow Doppler. No source of embolism found. Procedure: A two-dimensional transthoracic echocardiogram with color flow and Doppler was performed. The study quality was technically adequate. A saline contrast injection was performed to assess for cardiac shunting. There is no prior echocardiogram noted for this patient. The patient was in sinus rhythm with heart rates between 76-88 bpm during the exam. Left Ventricle: The left ventricle is normal in size and wall thickness. The ejection fraction is estimated to be 60-65%. Right Ventricle: The right ventricle is normal in size and function. Atria: The left atrial size is normal. Right atrial size is normal. There is no Doppler evidence for an interatrial shunt. Injection of contrast documented no interatrial shunt. Mitral Valve: The mitral valve leaflets appear mildly thickened, but open well. There is mild mitral annular calcification. There is trace mitral regurgitation. Aortic Valve: The aortic valve is trileaflet. The aortic valve opens well. There is no aortic valve stenosis. No aortic regurgitation is present. Tricuspid Valve: The tricuspid valve is not well visualized. There is trace tricuspid regurgitation. Pulmonic Valve: The pulmonic valve leaflets are thin and pliable; valve motion is normal. There is trace pulmonic regurgitation. Great Vessels: The aortic root is normal size. The dimensions of the ascending aorta are normal. The IVC is of normal diameter and collapses greater than 50% with a sniff. This suggests a low right atrial pressure of 3 mm Hg. Pericardium/ Pleura There is no pericardial effusion. There is no pleural effusion. MMode/2D Measurements & Calculations LVIDd: 4.1 cm LVOT diam: 2.3 cm LVIDs: 2.6 cm Ao root diam: 3.5 cm FS: 36.6 % asc Aorta Diam: 3.2 cm IVSd: 1.1 cm Ao Arch Diam (Prox Trans): 3.0 cm LVPWd: 0.93 cm LV paez. diameter/BSA (cm/m^2): 2.2 LV sys. diameter/BSA (cm/m^2): 1.4 LA A2 area: 15.0 cm2 RA long axis: 5.1 cm LA A4 area: 13.0 cm2 RA area: 15.0 cm2 LA length (vol): 4.6 cm RA vol: 37.6 ml LA vol: 36.4 ml RA : 20.4 ml/m2 LA vol index: 19.7 ml/m2 IVC diam: 1.5 cm RVD1 (basal): 3.0 cm RVD2 (mid): 2.5 cm TAPSE: 1.8 cm Doppler Measurements & Calculations Ao V2 max: 111.3 cm/sec LVOT Max Raf: 87.8 cm/sec Ao V2 mean: 77.5 cm/sec LV V1 max P.1 mmHg Ao max P.0 mmHg LV V1 VTI: 19.9 cm Ao mean P.7 mmHg KAYLYN(I,D): 3.5 cm2 Ao V2 VTI: 23.0 cm KAYLYN(V,D): 3.2 cm2 sev ratio: 0.86 KAYLYN indexed to BSA (cm^2/m^2): 1.9 MV E max raf: 61.6 cm/sec PA V2 max: 81.9 cm/sec MV A max raf: 100.1 cm/sec PA V2 mean: 52.9 cm/sec MV E/A: 0.62 PA mean P.3 mmHg Med Peak E' Raf: 5.3 cm/sec PA pr(Accel): 36.2 mmHg E/E' med: 11.6 Lat Peak E' Raf: 7.1 cm/sec E/E' lat: 8.7 E/e' average: 10.1 MV dec time: 0.21 sec SVLVOT): 79.8 ml Electronically signed by: Yoko Freeman M.D. on Reading Physician:07/19/2022 12:10 PM
[2022-07-18 20:50] LABS: Cholesterol 224 mg/dL (140-199); HDL Cholesterol 49 mg/dL (40-60); LDL Cholesterol Calculated 156 mg/dL (<100); Triglycerides 97 mg/dL (35-150)
[2022-07-18 20:52] LABS: Hemoglobin A1C% w Est Avg Glu 5.8 % (4.0-6.0)
[2022-07-18 21:01] LABS: NT-proBNP (BNP-Adult 18+) 58 pg/mL (<125)
[2022-07-18] MEDS: ACETAMINOPHEN 325 MG TABLET 650 MG PO (22:04)
[2022-07-18] MEDS: ATORVASTATIN 20 MG TABLET 80 MG PO (22:04)
[2022-07-19 00:08] VITALS: BP 127/74; PULSE 75; RESP 16; O2SAT 96
[2022-07-19 00:21] VITALS: O2SAT 98
[2022-07-19 00:28] VITALS: BMI 29.3
[2022-07-19 00:30] VITALS: BP 142/79; PULSE 80; RESP 17; TEMP 36.1; O2SAT 97
[2022-07-19 01:02] VITALS: BMI 29.3
[2022-07-19 01:28] LABS: Troponin I < 0.012 ng/mL (0.01-0.034)
--- NOTE | 2022-07-19 01:52 | PC.NURSE ---
Admit/NOC Shift Note- Patient arrived to room via wheelchair fro ER at 0030. Patientmable to walk from wheelchair to bed on her own with steady gait noted. Patient alert and oriented and able to make needs known to staff. Admit questions done, medications reviewed, physical assessment done, and skin check completed. Patient oriented to bed and bed controls, room, lights, bathroom, lights, menu, and call sanches/tv remote. Patient agrees to call for assistance. Safety measures in place. Call sanches and phone within reach. Will continue to monitor.
--- NOTE | 2022-07-19 02:13 | P.HP_ITS ---
History of Present Illness History of Present Illness Date Patient Seen: 07/18/22 Time Patient Seen: 20:31 Chief complaint: Double Vision Stroke Narrative: Mary Anne Wilkerson is a 72-year-old female former smoker without any significant chronic medical history presents from the ophthalmology office in the chief complaint of double vision since Sunday night.?Since sunday she has had double vision which initially was only when looking to the side or down, but in the ED she had it when she looked straight ahead as well.? It is only with both eyes open and she states the images tend to be slightly askew as opposed to directly horizontal or vertical of 1 another.? Upon admit exam she now only experiences the double vision when she looks downward in lower rosales of vision, no longer straight ahead. Patient denies any recent trauma or head injury, falls, URI, dizziness, weakness, lightheadedness, confusion, trouble with speech, or swallowing, dexterity issues, balance or coordination, ambulation. nor any extremity numbness, tingling or weakness.? She presented initially to Dr. Yancey's office and had a full evaluation including dilated eye exam and was sent here as her exam was essentially normal.? She was outside of any window for tPA Patient is stable resting in bed in no discomfort or distress at this time. Vitals temp 97.9?, BP 138/84, HR 82, R 23, O2 saturation 97% on room air. Patient's CBC, CMP liver panel troponin and tox screen are all unremarkable. Patient's head neck CTA is negative, head CT is negative, chest x-ray is negative, patient's EKG is normal sinus rhythm with a rate of [address] or T-wave changes, NIH score of 0. Patient notes that she had COVID in February 2022 but was asymptomatic and is fully vaccinated, patient has no cardiovascular history, takes no medications, does not smoke, occasionally drinks alcohol, no recreational substances. Patient admitted for neurological deficit rule out TIA. Patient History Medical History Asthma Osteoarthritis Pre-diabetes Surgical History Hx of bilateral cataract extraction (2015) Hx of knee surgery (1963) Family & Social History Family History Mother Cancer Father Congestive heart failure Social History: household members spouse Prior Living Arrangements House Safety & Behavioral: Feels Safe in Current No Environment Been Physically Hurt or No Threatened By a Person Tobacco & Substance use: Smoking Status Former smoker alcohol intake current alcohol intake frequency 0-2 drinks per day Substance Use Type does not use Meds Home Medications and Allergies Home Medications Medication Instructions Recorded Confirmed Type acetaminophen 500 mg tablet 500 mg PO BID PRN pain 01/23/22 01/23/22 History ibuprofen 200 mg tablet 200 mg PO DAILY PRN Pain 01/23/22 01/23/22 History acetaminophen 500 mg capsule 500 mg PO Q4H PRN fever or pain 02/02/22 Rx #90 caps docusate sodium 100 mg capsule 100 mg PO BID PRN Constipation 02/02/22 Rx from narcotic pain meds #20 caps ibuprofen 400 mg tablet 400 mg PO Q4HR PRN 02/02/22 Rx Pain/inflammation #90 tabs oxycodone 5 mg tablet 5 mg PO Q3HR PRN Pain, Moderate 02/02/22 Rx (4-6) #42 tabs Allergies Allergy/AdvReac Type Severity Reaction Status Date / Time egg Allergy Intermediate Vomiting Verified 02/01/22 09:46 latex [LATEX] Allergy Mild ITCHING Verified 02/01/22 09:46 Review of Systems Review of Systems Narrative: All 12 point systems reviewed with the patient and are negative except otherwise documented. Exam Vital Signs (past 8 hours): - 07/18/22 18:24 07/18/22 18:25 07/18/22 18:25 Temperature Pulse Rate 93 H Respiratory Rate Blood Pressure 169/94 H Pulse Oximetry 95 96 Oxygen Delivery Method Oxygen Flow Rate 07/18/22 18:51 07/18/22 19:00 07/18/22 19:07 Temperature Pulse Rate 83 93 H Respiratory Rate 24 25 H Blood Pressure 138/84 Pulse Oximetry 97 Oxygen Delivery Method Oxygen Flow Rate 07/18/22 19:07 07/18/22 19:30 07/18/22 19:30 Temperature Pulse Rate 82 75 Respiratory Rate 23 Blood Pressure 140/69 Pulse Oximetry 97 96 Oxygen Delivery Method Oxygen Flow Rate 07/18/22 20:00 07/18/22 20:00 07/18/22 20:30 Temperature Pulse Rate 75 Respiratory Rate 20 Blood Pressure 145/73 H 143/85 H Pulse Oximetry 94 Oxygen Delivery Method Oxygen Flow Rate 07/18/22 20:30 07/18/22 22:19 07/18/22 22:20 Temperature Pulse Rate 72 76 71 Respiratory Rate 18 Blood Pressure Pulse Oximetry 97 97 98 Oxygen Delivery Method Oxygen Flow Rate 07/18/22 22:20 07/19/22 00:08 07/19/22 00:08 Temperature Pulse Rate 75 Respiratory Rate 16 Blood Pressure 145/89 H 127/74 Pulse Oximetry 96 Oxygen Delivery Method Oxygen Flow Rate 07/18/22 20:21 07/19/22 00:21 07/19/22 00:30 Temperature 96.9 F L Pulse Rate 80 Respiratory Rate 17 Blood Pressure 142/79 H Pulse Oximetry 98 98 97 Oxygen Delivery Method Room Air Room Air Oxygen Flow Rate 0 0 0 Oxygen Delivery Method Room Air Oxygen Flow Rate 0 Narrative Exam Narrative: General: Patient is a well-developed, well-nourished female, in no distress at this time. HEENT: Normocephalic, atraumatic, extraocular muscles intact, oral pharynx is clear and mucous membranes are moist. Neck is supple and symmetric, trachea is midline, no adenopathy, no thyroid enlargement, nontender, no masses palpated. Negative for JVD Chest: Normal AP diameter and contour without kyphoscoliosis, no nasal flaring, retractions, or tachypneic labored Lungs: Auscultation of all lung rosales are clear without adventitious sounds, wheezes, rhonchi, or rales. Cardio: S1 & S2 with regular rate and rhythm without murmur, rubs, or gallops, no carotid bruit, no cardiac pulsations present. Abdomen: Soft nontender, negative for organomegaly, or masses. Bowel sounds are present in all 4 quadrants without guarding or rebound, no CVA tenderness. Musculoskeletal: Muscle strength and tone are equal within normal limits, no deformity, crepitus, effusions, cyanosis, clubbing or edema present. Full range of motion intact radial and pedal pulses are normal. Skin: Warm dry and intact without rashes, ulcerations or petechiae. Neuro: Alert and orientated x3, strength is +5/5 in all extremities, sensation to touch intact, no gross deficits noted of cranial nerves.GCS 15, NIH 0 Psych: Patient has a well-kept appearance, appropriate affect, mental status attitude thought context and judgment are appropriate for age. Objective Labs Result Diagrams: 07/18/22 18:26 07/18/22 18:26 Labs: Laboratory Results - last 24 hr 07/18/22 07/18/22 07/18/22 18:26 18:26 18:26 WBC 5.9 RBC 4.23 Hgb 12.7 Hct 37.2 MCV 87.9 MCH 30.0 MCHC 34.1 RDW 13.9 Plt Count 264 Neut % (Auto) 58.2 Lymph % (Auto) 26.4 [place] % (Auto) 11.2 Eos % (Auto) 3.2 Baso % (Auto) 1.0 Neut # (Auto) 3400 Lymph # (Auto) 1600 [place] # (Auto) 700 Eos # (Auto) 200 Baso # (Auto) 100 PT 11.1 INR 1.0 APTT 28 Sodium 141 Potassium 4.7 Chloride 104 Carbon Dioxide 29 BUN 21 H Creatinine 0.87 Estimated GFR > 60 BUN/Creatinine Ratio 24.1 H Glucose 109 Hemoglobin A1c Calcium 9.6 Magnesium 2.2 Total Bilirubin 0.4 AST 26 ALT 24 Alkaline Phosphatase 95 Total Creatine Kinase 41 CK-MB (CK-2) TNP CK-MB (CK-2) Rel Index TNP Troponin I < 0.012 NT-Pro-B Natriuret Pep Total Protein 8.2 Albumin 4.2 Globulin 4.0 Albumin/Globulin Ratio 1.1 Triglycerides Cholesterol LDL Cholesterol, Calc HDL Cholesterol U Opiates 300ng/mL cut Ur Oxycodone Screen Urine Methadone Screen Ur Barbiturates Screen U Tricyclic Antidepress Ur Phencyclidine Scrn Ur Amphetamines Screen U Methamphetamines Scrn Ur MDMA Scrn (Ecstasy) U Benzodiazepines Scrn Urine Cocaine Screen U Marijuana (THC) Screen SARS-CoV-2 (PCR) 07/18/22 07/18/22 07/18/22 18:26 18:26 18:26 WBC RBC Hgb Hct MCV MCH MCHC RDW Plt Count Neut % (Auto) Lymph % (Auto) [place] % (Auto) Eos % (Auto) Baso % (Auto) Neut # (Auto) Lymph # (Auto) [place] # (Auto) Eos # (Auto) Baso # (Auto) PT INR APTT Sodium Potassium Chloride Carbon Dioxide BUN Creatinine Estimated GFR BUN/Creatinine Ratio Glucose Hemoglobin A1c 5.8 Calcium Magnesium Total Bilirubin AST ALT Alkaline Phosphatase Total Creatine Kinase CK-MB (CK-2) CK-MB (CK-2) Rel Index Troponin I NT-Pro-B Natriuret Pep Total Protein Albumin Globulin Albumin/Globulin Ratio Triglycerides 97 Cholesterol 224 H LDL Cholesterol, Calc 156 H HDL Cholesterol 49 U Opiates 300ng/mL cut Ur Oxycodone Screen Urine Methadone Screen Ur Barbiturates Screen U Tricyclic Antidepress Ur Phencyclidine Scrn Ur Amphetamines Screen U Methamphetamines Scrn Ur MDMA Scrn (Ecstasy) U Benzodiazepines Scrn Urine Cocaine Screen U Marijuana (THC) Screen SARS-CoV-2 (PCR) Negative 07/18/22 07/18/22 07/19/22 18:26 18:52 01:00 WBC RBC Hgb Hct MCV MCH MCHC RDW Plt Count Neut % (Auto) Lymph % (Auto) [place] % (Auto) Eos % (Auto) Baso % (Auto) Neut # (Auto) Lymph # (Auto) [place] # (Auto) Eos # (Auto) Baso # (Auto) PT INR APTT Sodium Potassium Chloride Carbon Dioxide BUN Creatinine Estimated GFR BUN/Creatinine Ratio Glucose Hemoglobin A1c Calcium Magnesium Total Bilirubin AST ALT Alkaline Phosphatase Total Creatine Kinase CK-MB (CK-2) CK-MB (CK-2) Rel Index Troponin I < 0.012 NT-Pro-B Natriuret Pep 58 Total Protein Albumin Globulin Albumin/Globulin Ratio Triglycerides Cholesterol LDL Cholesterol, Calc HDL Cholesterol U Opiates 300ng/mL cut Negative Ur Oxycodone Screen Negative Urine Methadone Screen Negative Ur Barbiturates Screen Negative U Tricyclic Antidepress Negative Ur Phencyclidine Scrn Negative Ur Amphetamines Screen Negative U Methamphetamines Scrn Negative Ur MDMA Scrn (Ecstasy) Negative U Benzodiazepines Scrn Negative Urine Cocaine Screen Negative U Marijuana (THC) Screen TNP SARS-CoV-2 (PCR) Assessment & Plan Assessment & Plan narrative: Mary Anne Wilkerson is a 72-year-old female with no significant medical history who takes no medications presented with double vision, admitted for neurological deficit rule out TIA versus CVA. 1. Neurological deficit (diplopia in bilateral lower rosales of vision) acute, present on admission -patient is stable and in no distress at this time. -NIH:0 -head neck CTA is negative -head CT is negative -MR ordered for tomorrow -Echo ordered -Trop neg x 1 - trend -BNP, A1C -PT/OT Consult -Plavix, Lipitor, ASA -Telemedicine 2. Overweight as evidence by BMI of 29.3, acute on chronic, present on admission -dietary consult placed regarding diet exercise lifestyle and weight changes Code status:Full Surrogate decision maker: Spouse Sonny Wilkerson COVZHANG PCR:Negative COVID vaccination: Fully vaccinated DVT/VTE prophylaxis: Lovenox and SCDs Disposition: Patient admitted for neurological deficit, diplopia-rule out TIA versus CVA, expected length of stay less than 2 midnight I have utilized all available immediate resources to obtain, update, or review the patient's current medications. I confirmed that the patient's advanced care plan is present, Code status is documented and/or surrogate decision maker is listed in the patient's medical record. Time Spent With Patient Critical Care time: I spent a total of [] minutes of critical care time on this patient's care today; this time is exclusive of procedural time. Scores GCS Jabari coma scale eye opening: Spontaneous [place] coma scale verbal response: Orientated [place] coma scale motor response: Obey commands [place] coma scale total score: 15 Quality VTE Deep Vein Thrombosis/Pulmonary Embolism Present on Admission: No
[2022-07-19 04:00] VITALS: BP 141/67; PULSE 71; RESP 15; TEMP 36.2; O2SAT 98
[2022-07-19 05:44] LABS: BUN Creatinine Ratio 20.8 (6-22); Blood Urea Nitrogen 15 mg/dL (7-17); Carbon Dioxide 30 mmol/L (22-32); Chloride 105 mmol/L (98-107); Estimated Glomerular Filt Rate > 60 mL/min (>60); Glucose 99 mg/dL (80-110); HEMOLYSIS < 15 (0-50); Potassium 4.2 mmol/L (3.4-5.1); Sodium 137 mmol/L (137-145)
[2022-07-19 08:00] VITALS: BP 123/71; PULSE 76; RESP 18; TEMP 36.6; O2SAT 96
[2022-07-19 08:32] LABS: Troponin I < 0.012 ng/mL (0.01-0.034)
--- NOTE | 2022-07-19 08:57 | PC.NURSE ---
Addendum entered by Kelsie Sanchez R.N. 07/19/22 09:00: Patient took Bactrim for 7 days Original Note: Bactrim: Patient started taking Bactrim 07/05/2022 for a UTI. This was not reported on admission. Vision complaints began 07/16/22 per patient
--- NOTE | 2022-07-19 08:59 | P.DS_ITS ---
History of Present Illness History of Present Illness Date Patient Seen: 07/19/22 Time Patient Seen: 09:00 Chief complaint: Double Vision Stroke Narrative: Mary Anne Wilkerson is a 72-year-old female former smoker without any significant chronic medical history presents from the ophthalmology office in the chief complaint of double vision since Sunday night.?Since sunday she has had double vision which initially was only when looking to the side or down,? but in the ED she had it when she looked straight ahead as well.? It is only with both eyes open and she states the images tend to be slightly askew as opposed to directly horizontal or vertical of 1 another.? Upon admit exam she now only experiences the double vision when she looks downward in lower rosales of vision, no longer straight ahead. Patient denies any recent trauma or head injury, falls, URI,? dizziness, weakness,? lightheadedness, confusion, trouble with speech, or swallowing, dexterity issues, balance or coordination, ambulation. nor any extremity numbness, tingling or weakness.? She presented initially to Dr. Yancey's office and had a full evaluation including dilated eye exam and was sent here as her exam was essentially normal.? She was outside of any window for tPA Patient is stable resting in bed in no discomfort or distress at this time.? Vitals temp 97.9?, BP 138/84, HR 82, R 23, O2 saturation 97% on room air.? Patient's CBC, CMP liver panel troponin and tox screen are all unremarkable.? Patient's head neck CTA is negative, head CT is negative, chest x-ray is negative, patient's EKG is normal sinus rhythm with a rate of [address] or T-wave changes, NIH score of 0.? Patient notes that she had COVID in February 2022 but was asymptomatic and is fully vaccinated, patient has no cardiovascular history, takes no medications, does not smoke, occasionally drinks alcohol, no recreational substances. Patient admitted for neurological deficit rule out TIA. Discharge Providers Provider Date of admission: 07/19/22 00:20 Discharge Date: 07/19/22 Primary care physician: Rashaun Alvarado MD Consults: 07/18/22 20:24 Consult to Occupational Therapy Evaluate & Treat Comment: neuro deficit Physician Instructions: Evaluate and treat 07/18/22 20:25 Consult to Physical Therapy Evaluate & Treat Comment: neuro deficit Physician Instructions: Evaluate and Treat 07/19/22 03:15 Consult to Dietitian, Adult Routine Comment: Reason For Exam: BMI 29.3 07/19/22 03:16 Consult to Occupational Therapy Evaluate & Treat Comment: neuro deficit Physician Instructions: Evaluate and treat Consult to Physical Therapy Evaluate & Treat Comment: Neuro deficit Physician Instructions: Evaluate and Treat Discharge provider: Tavo Slater DO Summary Hospital Course Discharge Diagnosis: 1. Neurological deficit (diplopia in bilateral lower rosales of vision) acute, present on admission -patient is stable and in no distress at this time. -NIH:0 -head neck CTA is negative -head CT is negative -MR brain showed no evidence of CVA -Echo showed EF 60-65% with no evidence of PFO -Trop neg x3 -BNP 58, A1C 5.8 -PT/OT Consulted and cleared pt -21 days of Plavix, continu Lipitor, ASA indefinitely 2. Overweight as evidence by BMI of 29.3, acute on chronic, present on admission -dietary consult placed regarding diet exercise lifestyle and weight changes Hospital Course: Patient admitted for diplopia with concern for possible TIA. NIH of 0 in ED. MR brain normal and echo normal. 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 Time Spent with Patient Time spent: Greater than 30 minutes Exam Vital Signs (past 8 hours): - 07/19/22 04:00 07/19/22 04:00 07/19/22 08:00 Temperature 97.1 F L 97.9 F Pulse Rate 71 76 Respiratory Rate 15 18 Blood Pressure 141/67 H 123/71 Pulse Oximetry 98 98 96 Oxygen Delivery Method Room Air Oxygen Flow Rate 0 0 Oxygen Delivery Method Room Air Oxygen Flow Rate 0 Narrative Exam Narrative: General: Patient is a well-developed, well-nourished female, in no distress at this time. HEENT: Normocephalic, atraumatic, extraocular muscles intact, oral pharynx is clear and mucous membranes are moist. Neck is supple and symmetric, trachea is midline, no adenopathy, no thyroid enlargement, nontender, no masses palpated. Negative for JVD Chest: Normal AP diameter and contour without kyphoscoliosis, no nasal flaring, retractions, or tachypneic labored Lungs: Auscultation of all lung rosales are clear without adventitious sounds, wheezes, rhonchi, or rales. Cardio: S1 & S2 with regular rate and rhythm without murmur, rubs, or gallops, no carotid bruit, no cardiac pulsations present. Abdomen: Soft nontender, negative for organomegaly, or masses. Bowel sounds are present in all 4 quadrants without guarding or rebound, no CVA tenderness. Musculoskeletal: Muscle strength and tone are equal within normal limits, no deformity, crepitus, effusions, cyanosis, clubbing or edema present. Full range of motion intact radial and pedal pulses are normal. Skin: Warm dry and intact without rashes, ulcerations or petechiae. Neuro: Alert and orientated x3, strength is +5/5 in all extremities, sensation to touch intact, no gross deficits noted of cranial nerves.GCS 15, NIH 0 Psych: Patient has a well-kept appearance, appropriate affect, mental status attitude thought context and judgment are appropriate for age. Objective Labs Result Diagrams: 07/18/22 18:26 07/19/22 05:02 Labs: Laboratory Results - last 24 hr 07/18/22 07/18/22 07/18/22 18:26 18:26 18:26 WBC 5.9 RBC 4.23 Hgb 12.7 Hct 37.2 MCV 87.9 MCH 30.0 MCHC 34.1 RDW 13.9 Plt Count 264 Neut % (Auto) 58.2 Lymph % (Auto) 26.4 [place] % (Auto) 11.2 Eos % (Auto) 3.2 Baso % (Auto) 1.0 Neut # (Auto) 3400 Lymph # (Auto) 1600 [place] # (Auto) 700 Eos # (Auto) 200 Baso # (Auto) 100 PT 11.1 INR 1.0 APTT 28 Sodium 141 Potassium 4.7 Chloride 104 Carbon Dioxide 29 BUN 21 H Creatinine 0.87 Estimated GFR > 60 BUN/Creatinine Ratio 24.1 H Glucose 109 Hemoglobin A1c Calcium 9.6 Magnesium 2.2 Total Bilirubin 0.4 AST 26 ALT 24 Alkaline Phosphatase 95 Total Creatine Kinase 41 CK-MB (CK-2) TNP CK-MB (CK-2) Rel Index TNP Troponin I < 0.012 NT-Pro-B Natriuret Pep Total Protein 8.2 Albumin 4.2 Globulin 4.0 Albumin/Globulin Ratio 1.1 Triglycerides Cholesterol LDL Cholesterol, Calc HDL Cholesterol U Opiates 300ng/mL cut Ur Oxycodone Screen Urine Methadone Screen Ur Barbiturates Screen U Tricyclic Antidepress Ur Phencyclidine Scrn Ur Amphetamines Screen U Methamphetamines Scrn Ur MDMA Scrn (Ecstasy) U Benzodiazepines Scrn Urine Cocaine Screen U Marijuana (THC) Screen SARS-CoV-2 (PCR) 07/18/22 07/18/22 07/18/22 18:26 18:26 18:26 WBC RBC Hgb Hct MCV MCH MCHC RDW Plt Count Neut % (Auto) Lymph % (Auto) [place] % (Auto) Eos % (Auto) Baso % (Auto) Neut # (Auto) Lymph # (Auto) [place] # (Auto) Eos # (Auto) Baso # (Auto) PT INR APTT Sodium Potassium Chloride Carbon Dioxide BUN Creatinine Estimated GFR BUN/Creatinine Ratio Glucose Hemoglobin A1c 5.8 Calcium Magnesium Total Bilirubin AST ALT Alkaline Phosphatase Total Creatine Kinase CK-MB (CK-2) CK-MB (CK-2) Rel Index Troponin I NT-Pro-B Natriuret Pep Total Protein Albumin Globulin Albumin/Globulin Ratio Triglycerides 97 Cholesterol 224 H LDL Cholesterol, Calc 156 H HDL Cholesterol 49 U Opiates 300ng/mL cut Ur Oxycodone Screen Urine Methadone Screen Ur Barbiturates Screen U Tricyclic Antidepress Ur Phencyclidine Scrn Ur Amphetamines Screen U Methamphetamines Scrn Ur MDMA Scrn (Ecstasy) U Benzodiazepines Scrn Urine Cocaine Screen U Marijuana (THC) Screen SARS-CoV-2 (PCR) Negative 07/18/22 07/18/22 07/19/22 18:26 18:52 01:00 WBC RBC Hgb Hct MCV MCH MCHC RDW Plt Count Neut % (Auto) Lymph % (Auto) [place] % (Auto) Eos % (Auto) Baso % (Auto) Neut # (Auto) Lymph # (Auto) [place] # (Auto) Eos # (Auto) Baso # (Auto) PT INR APTT Sodium Potassium Chloride Carbon Dioxide BUN Creatinine Estimated GFR BUN/Creatinine Ratio Glucose Hemoglobin A1c Calcium Magnesium Total Bilirubin AST ALT Alkaline Phosphatase Total Creatine Kinase CK-MB (CK-2) CK-MB (CK-2) Rel Index Troponin I < 0.012 NT-Pro-B Natriuret Pep 58 Total Protein Albumin Globulin Albumin/Globulin Ratio Triglycerides Cholesterol LDL Cholesterol, Calc HDL Cholesterol U Opiates 300ng/mL cut Negative Ur Oxycodone Screen Negative Urine Methadone Screen Negative Ur Barbiturates Screen Negative U Tricyclic Antidepress Negative Ur Phencyclidine Scrn Negative Ur Amphetamines Screen Negative U Methamphetamines Scrn Negative Ur MDMA Scrn (Ecstasy) Negative U Benzodiazepines Scrn Negative Urine Cocaine Screen Negative U Marijuana (THC) Screen TNP SARS-CoV-2 (PCR) 07/19/22 07/19/22 05:02 07:00 WBC RBC Hgb Hct MCV MCH MCHC RDW Plt Count Neut % (Auto) Lymph % (Auto) [place] % (Auto) Eos % (Auto) Baso % (Auto) Neut # (Auto) Lymph # (Auto) [place] # (Auto) Eos # (Auto) Baso # (Auto) PT INR APTT Sodium 137 Potassium 4.2 Chloride 105 Carbon Dioxide 30 BUN 15 Creatinine 0.72 Estimated GFR > 60 BUN/Creatinine Ratio 20.8 Glucose 99 Hemoglobin A1c Calcium 9.0 Magnesium Total Bilirubin AST ALT Alkaline Phosphatase Total Creatine Kinase CK-MB (CK-2) CK-MB (CK-2) Rel Index Troponin I < 0.012 NT-Pro-B Natriuret Pep Total Protein Albumin Globulin Albumin/Globulin Ratio Triglycerides Cholesterol LDL Cholesterol, Calc HDL Cholesterol U Opiates 300ng/mL cut Ur Oxycodone Screen Urine Methadone Screen Ur Barbiturates Screen U Tricyclic Antidepress Ur Phencyclidine Scrn Ur Amphetamines Screen U Methamphetamines Scrn Ur MDMA Scrn (Ecstasy) U Benzodiazepines Scrn Urine Cocaine Screen U Marijuana (THC) Screen SARS-CoV-2 (PCR) PFSH Medical History Asthma Osteoarthritis Pre-diabetes Surgical History Hx of bilateral cataract extraction (2015) Hx of knee surgery (1963) Family History Mother Cancer Father Congestive heart failure Social History household members: spouse Smoking Status: Former smoker alcohol intake: current Discharge Plan Discharge Plan Patient Disposition: Home Discharge orders & Medications Prescriptions: New clopidogrel 75 mg Tablet 75 mg PO DAILY 20 Days Qty: 20 0RF aspirin 81 mg Tablet,Delayed Release (Dr/Ec) 81 mg PO DAILY Qty: 90 0RF atorvastatin 40 mg tablet 40 mg PO BEDTIME Qty: 90 0RF Continued acetaminophen 500 mg Tablet 500 mg PO BID PRN (Reason: pain) acetaminophen 500 mg capsule 500 mg PO Q4H MDD Max 3000 mg per day PRN (Reason: fever or pain) Qty: 90 0RF docusate sodium 100 mg Capsule 100 mg PO BID PRN (Reason: Constipation from narcotic pain meds) Qty: 20 0RF oxycodone 5 mg Tablet 5 mg PO Q3HR PRN (Reason: Pain, Moderate (4-6)) Qty: 42 0RF Discontinued ibuprofen 200 mg Tablet 200 mg PO DAILY PRN (Reason: Pain) ibuprofen 400 mg Tablet 400 mg PO Q4HR MDD Max 2400 mg per day PRN (Reason: Pain/inflammation) Qty: 90 0RF Follow up/Referrals: Rashaun Alvarado MD [Primary Care Provider] - Discharge Data Primary Care Provider: Rashaun Alvarado Attending Provider: Jaylene Burk VTE Deep Vein Thrombosis/Pulmonary Embolism Present on Admission: No
--- NOTE | 2022-07-19 09:32 | OT.IP.EVAL ---
Past Medical History (Last Reviewed 07/19/22 @ 02:21 by [facility] Asthma Osteoarthritis Pre-diabetes Surgical History (Last Reviewed 07/19/22 @ 02:21 [facility] Hx of bilateral cataract extraction (2015) Hx of knee surgery (1963) Occupational Therapy Inpatient Evaluation/Re-Eval M1 PT/OT-IP Prior Functional Status Start: 07/19/22 08:54 Freq: NEEDED Status: Discharge Protocol: Document 07/19/22 09:32 AW (Rec: 07/19/22 12:33 AW [id number]) Medical Review Prior Functional Status Medical History Reviewed Yes Communication WNL Mobility and Gait Pt is active and independent with all mobility. She enjoys gardening and chopping wood. She endorses no meaningful limit to her mobility. Activities of Daily Living and IADL's Independent with all ADL and IADL needs. 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 Social History Household Members spouse Living Arrangements House Number of Floors (Floors) One Floor Number of Stairs To Enter/Railing? 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 She lives with her spouse, Sonny, in [place]. She does have trekking poles that she uses occasionally on uneven terrain . M1 PT/OT-IP Prior Functional Status Start: 07/19/22 12:20 Freq: NEEDED Status: Active Protocol: Document 07/19/22 09:32 [facility] (Rec: 07/19/22 13:00 [facility] [id number]) Medical Review Prior Functional Status Communication Independent Mobility and Gait Completely independent without use of a device. Activities of Daily Living and IADL's Completely independent for all ADL, IADL and drives. Social History Household Members spouse Living Arrangements House Number of Floors (Floors) One Floor Number of Stairs To Enter/Railing? 5 steps with bilateral wide rails. Home Environment Standard Height Toilet,Walk in Shower Home Equipment Shower Seat without Backrest, Grab Bars Near Toilet Additional Social History Comment Pt able to get equipment if needed. M2 OT-IP Current Condition Start: 07/19/22 12:20 Freq: Status: Active Protocol: Document 07/19/22 09:32 [facility] (Rec: 07/19/22 13:00 [facility] [id number]) Occupational Therapy Current Condition Current Condition Evaluation Date 07/19/22 Treatment Diagnosis neurological deficits Diagnosis Onset Date 07/19/22 M3 OT- IP Subjective and Pain Start: 07/19/22 12:20 Freq: Status: Active Protocol: Document 07/19/22 09:32 [facility] (Rec: 07/19/22 13:00 [facility] [id number]) OT- Subjective Occupational Therapy Visit Type Type Initial Evaluation Visit Start Time 09:32 Visit Stop Time 09:54 Total Visit Minutes 22 Occupational Therapy Visit Comments Patient Comments Pt agreed to get up. Patient/Caregiver Goals TO go home. OT Pain Assessment Pain When Pain Assessed At Rest Pain Present Pain Present Denied Pain M4 OT- IP ADL's Start: 07/19/22 12:20 Freq: Status: Active Protocol: Document 07/19/22 09:32 [facility] (Rec: 07/19/22 13:00 [facility] [id number]) OT [id number] General Evaluation Self-Feeding Ability Independent OT ADL-Grooming Comments OT Grooming Comments Not performed. OT ADL-Oral Care Comments Oral Care Comments Not performed. OT ADL-Dressing General Eval Lower Body Dressing Ability Independent Comments OT Dressing Comments Pt seeing double when looking down to wilma/doff her socks. OT ADL-Toileting Comments OT Toileting Comments Pt states has been able to do the toilet of her own. OT ADL-Bathing Comments OT Bathing Comments Pt has a shower stool at home to use if needed. M5 OT- IP IADL's Start: 07/19/22 12:20 Freq: Status: Active Protocol: Document 07/19/22 09:32 [facility] (Rec: 07/19/22 13:00 [facility] [id number]) OT-Instrumental Activities of Daily Living Home Safety Awareness Awareness of Need for Assistance at Home Good Awareness Ability to Problem Solve Emergency Able to Problem Solve Situations Home Safety Comments Pt has a very supportive to be able to provide supervision and assist as needed. M6 OT- IP Functional Cognition Start: 07/19/22 12:20 Freq: Status: Active Protocol: Document 07/19/22 09:32 [facility] (Rec: 07/19/22 13:00 [facility] [id number]) Cognitive Factors Limiting Selfcare Function Cognitive Ability Level of Alertness Alert Patient Orientation Name,Place,Situation Attention Span Ability Capable of Focused Attention, Capable of Sustained Attention Ability to Follow Commands Able to Follow Multi-Step Commands Memory Description No Deficits Noted Safety Awareness No Deficits Noted Problem Solving Ability No deficits Noted Executive Function Ability No Deficits Noted Cognitive Comments Cognitive Assessment Comments Pt scored 70 seconds on [place] Making Part B which is 80% for her age group and implies normal but not perfect for visual attention, speed of processing, executive functioning, mental flexibility and task switching . Pt seem intact for all cognitive needs. OT- Vision and Hearing OT- Hearing Assessment OT- Hearing Assessment WFL OT- Vision Assessment Visual Acuity Glasses For Reading Visual Attentiveness WFL Occular Pursuits WFL Visual Convergence WFL Visual Nunez WFL Diplopia Absent Vision Assessment Comments Pt only complains of double vision when looking down with her eyes independently from her head. However when pt moves her head down with her eyes , no double vision noted. M7 OT- IP Mobility and Balance Start: 07/19/22 12:20 Freq: Status: Active Protocol: Document 07/19/22 09:32 [facility] (Rec: 07/19/22 13:00 [facility] [id number]) OT- Bed Mobility Assessment Supine to Sit Supine to Sit Assist Independent Sit to Supine Sit to Supine Assist Independent OT-Transfer Assessment Sit to and From Stand Sit to and from Stand Independent Transfers Transfer Ability Independent OT- Balance Assessment Sitting Balance and Reactions Static Sitting Balance Ability Normal Dynamic Sitting Balance Ability Normal Standing Balance and Reactions Static Standing Balance Ability Normal Dynamic Standing Balance Ability Good Comments Other Balance Tests/Deviations/Treatment Noted for pt to be careful : when walking on uneven terrain and to move her head down with her eyes. Also suggested not to drive at this time until able to get her eyes checked out. M8 OT- IP Objective Assessments Start: 07/19/22 12:20 Freq: Status: Active Protocol: Document 07/19/22 09:32 [facility] (Rec: 07/19/22 13:00 [facility] [id number]) OT Gross Range of Motion Upper Extremity Range of Motion Assessment Within Functional Limits OT Strength Upper Extremity Strength Assessment Within Functional Limits OT- Coordination Assessment Upper Extremity Finger to Nose Test Within Functional Limits Finger Tapping Test Within Functional Limits OT-Muscle Tone Assessment Muscle Tone WNL Yes OT Sensation Assessment Comments Summary Comments intact light touch M9 OT- IP Assessment and Plan Start: 07/19/22 12:20 Freq: Status: Active Protocol: Document 07/19/22 09:32 [facility] (Rec: 07/19/22 13:00 [facility] [id number]) OT Summary Assessment and Plan Potential Rehabilitation Potential Excellent Analytic Complexity at Evaluation Low Summary Progress Towards Goals Safe For Discharge Assessment Summary Pt low complexity and main barrier is her vision. Pt has double vision when moving her eyes downwards. When pt moves her head and eyes at the same time does not see double. Goals OT-Other Goals Pt to be able to use compensatory vision strategies for ADl and mobility needs. Days to Meet Goals 1 Frequency of Treatment Frequency Of Treatment Once a Day Treatment Plan OT Treatment Plan Vision Retraining Discharge Recommendations OT Discharge Recommendations Home with Assistance Transportation Needs at Discharge Private Vehicle
--- NOTE | 2022-07-19 09:32 | PT.IIE ---
Surgical History (Last Reviewed 07/19/22 @ 02:21 by Jaylene Burk [facility]) Hx of bilateral cataract extraction (2016) Hx of knee surgery (1964) Medical History (Last Reviewed 07/19/22 @ 02:21 by Jaylene Burk [facility]) Asthma Osteoarthritis Pre-diabetes Physical Therapy Inpatient Evaluation/Re-Eval M1 PT/OT-IP Prior Functional Status Start: 07/19/22 08:54 Freq: NEEDED Status: Discharge Protocol: Document 07/19/22 09:32 AW (Rec: 07/19/22 12:33 AW [id number]) Medical Review Prior Functional Status Medical History Reviewed Yes Communication WNL Mobility and Gait Pt is active and independent with all mobility. She enjoys gardening and chopping wood. She endorses no meaningful limit to her mobility. Activities of Daily Living and IADL's Independent with all ADL and IADL needs. 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 Social History Household Members spouse Living Arrangements House Number of Floors (Floors) One Floor Number of Stairs To Enter/Railing? 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 She lives with her spouse, Sonny, in [place]. She does have trekking poles that she uses occasionally on uneven terrain . M2 PT-IP Current Condition Start: 07/19/22 08:54 Freq: NEEDED Status: Discharge Protocol: Document 07/19/22 09:32 AW (Rec: 07/19/22 12:33 AW [id number]) Physical Therapy Current Condition Current Condition Evaluation Date 07/19/22 Treatment Diagnosis double vision, rule out CVA/ TIA Onset Date 07/16/22 M3 PT-IP Subjective Start: 07/19/22 08:54 Freq: NEEDED Status: Discharge Protocol: Document 07/19/22 09:32 AW (Rec: 07/19/22 12:33 AW [id number]) Subjective Physical Therapy Visit Type Type Initial Evaluation Visit Start Time 09:05 Visit Stop Time 09:32 Total Visit Minutes 27 Notes Pt's spouse was present throughout evaluation Physical Therapy Visit Comments Patient Comments Pt reports her double vision started on Sunday and is most evident when she is looking down. Second object in field of vision tends to be askew - not parallel with the actual object. M4 PT-IP Mobility and Gait Start: 07/19/22 08:54 Freq: NEEDED Status: Discharge Protocol: Document 07/19/22 09:32 AW (Rec: 07/19/22 12:43 AW [id number]) PT-Bed Mobility Assessment Supine to Sit Supine to Sit Independent Sit to Supine Sit to Supine Independent PT-Transfer Assessment Sit to and From Stand Sit to and from Stand Independent Equipment Transfer Assistive Device None Orthotic/Prosthetic Devices or Brace: No Transfers Transfer Destination Chair Transfer Ability Level of Assist Independent Comments Mobility Comments Pt completed all bed mobility, transfers, and ambulation with no evidence of imbalance and no need for assist of any kind. Gait Assessment Gait Gait Assistance Required: Independent Distance (Feet) 500 Assistive Devices Assistive Device None Orthotic/Prosthetic Devices or Brace: No Gait Deviations General Gait Pattern Within Normal Limits Comments Gait Comments Pt completed Functional Gait Assessment with score of 28/30 with single points deducted for gait with vertical head turns and stairs. Stair Climbing Assessment Evaluation Level of Assist On Stairs Independent Devices Stair Climbing Assistive Devices Right Railing Technique/Endurance Stair Climbing Direction Ascend and Descend Stair Climbing Technique Step Over Step Number of Steps Climbed 10 Query Text: Stair Climbing Set # Repetitions (reps) 1 PT-Balance Assessment Sitting Balance and Reactions Static Sitting Balance Ability Normal Dynamic Sitting Balance Ability Normal Standing Balance and Reactions Static Standing Balance Ability Normal Dynamic Standing Balance Ability Normal Functional Assessments Functional Tests Functional Gait Assessment 28/30 M5 PT-IP Objective Assessments Start: 07/19/22 08:54 Freq: NEEDED Status: Discharge Protocol: Document 07/19/22 09:32 AW (Rec: 07/19/22 12:43 AW [id number]) Orientation Orientation/Cognition Level of Alertness Alert Orientation Name,Date,Day of Week,Place, Situation Language Function Ability No Deficits Noted Safety Awareness Understands Safety Issues Memory Description No Deficits Noted Gross Range of Motion Upper Extremity ROM Assessment Within Functional Limits Lower Extremity ROM Assessment Within Functional Limits Strength Upper Extremity Strength Assessment Within Functional Limits Lower Extremity Strength Assessment Within Functional Limits Comments Strength Comments No unilateral deficit Coordination Assessment Gross Coordination Gross Coordination WNL Assessment Finger to Nose Test Normal Performance Pronation/Supination Test Normal Performance Foot Tapping Test Normal Performance Sensation Assessment Sensation Gross Sensation WNL Muscle Tone Muscle Tone WNL Yes Other Assessments Other Other Assessments Left eye sits slightly higher than right eye at rest. Pt has slightly delayed tracking with left eye. Vision with left eye covered is normal. Vision with right eye covered is off and pt reports slight pressure in left eye and vision that is vaseline-y. Vestibular screen was grossly WNL. M6 PT-IP Treatment Start: 07/19/22 08:54 Freq: NEEDED Status: Discharge Protocol: Document 07/19/22 09:32 AW (Rec: 07/19/22 12:43 AW [id number]) Physical Therapy Treatment Education Education Provided Safety Other Treatments Other Treatment Performed Educated pt on signs of CVA and need for immediate treatment if signs present. M7 PT-IP Assessment and Plan Start: 07/19/22 08:54 Freq: NEEDED Status: Discharge Protocol: Document 07/19/22 09:32 AW (Rec: 07/19/22 12:43 AW [id number]) PT Summary Assessment and Plan Summary Assessment Summary Mary Anne is a 72 yo woman seen for PT evaluation per stroke protocol with reported double vision with sudden onset on Sunday. MRI imaging is clear but double vision persists. Pt is independent in all regards at baseline. On assessment today, she needed no assist for mobility and she scored 28 /30 on Functional Gait Assessment which is better than her age-matched peers. She does have slight discordance of her eyes at rest. Vestibular screen was grossly normal. Pt is safe to discharge home once medically stable. She would likely benefit from referral to neurophthalmology. Frequency of Treatment Frequency Of Treatment Discharge Recommendations To Nursing Amount of Assist Needed Independent Discharge Recommendations Other Discharge Recommendations Neurophthalmology referral Transportation Needs at Discharge Private Vehicle
--- NOTE | 2022-07-19 09:32 | OT.IP.EVAL ---
Past Medical History ([facility] 07[facility]19[facility]22 @ 02[facility] Asthma Osteoarthritis Pre-diabetes Surgical History (Last Review[facility] 07/19[facility]22 [facility] 02[facility] Hx of bilateral cataract extraction (2015) Hx of knee surgery (1963) Occupational Therapy Inpatient Evaluation/Re-Eval M1 PT/OT-IP Prior Functional Status Start: 07/19/22 08:54 Freq: NEEDED Status: Discharge Protocol: Document 07/19/22 09:32 AW (Rec: 07/19/22 12:33 AW [id number]) Medical Review Prior Functional Status Medical History Reviewed Yes Communication WNL Mobility and Gait Pt is active and independent with all mobility. She enjoys gardening and chopping wood. She endorses no meaningful limit to her mobility. Activities of Daily Living and IADL's Independent with all ADL and IADL needs. 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 Social History Household Members spouse Living Arrangements House Number of Floors (Floors) One Floor Number of Stairs To Enter/Railing? 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 She lives with her spouse, Sonny, in [place]. She does have trekking poles that she uses occasionally on uneven terrain . M1 PT/OT-IP Prior Functional Status Start: 07/19/22 12:20 Freq: NEEDED Status: Active Protocol: Document 07/19/22 09:32 [facility] (Rec: 07/19/22 13:00 [facility] [id number]) Medical Review Prior Functional Status Communication Independent Mobility and Gait Completely independent without use of a device. Activities of Daily Living and IADL's Completely independent for all ADL, IADL and drives. Social History Household Members spouse Living Arrangements House Number of Floors (Floors) One Floor Number of Stairs To Enter/Railing? 5 steps with bilateral wide rails. Home Environment Standard Height Toilet,Walk in Shower Home Equipment Shower Seat without Backrest, Grab Bars Near Toilet Additional Social History Comment Pt able to get equipment if needed. M2 OT-IP Current Condition Start: 07/19/22 12:20 Freq: Status: Active Protocol: Document 07/19/22 09:32 [facility] (Rec: 07/19/22 13:00 [facility] [id number]) Occupational Therapy Current Condition Current Condition Evaluation Date 07/19/22 Treatment Diagnosis neurological deficits Diagnosis Onset Date 07/19/22 M3 OT- IP Subjective and Pain Start: 07/19/22 12:20 Freq: Status: Active Protocol: Document 07/19/22 09:32 [facility] (Rec: 07/19/22 13:00 [facility] [id number]) OT- Subjective Occupational Therapy Visit Type Type Initial Evaluation Visit Start Time 09:32 Visit Stop Time 09:54 Total Visit Minutes 22 Occupational Therapy Visit Comments Patient Comments Pt agreed to get up. Patient/Caregiver Goals TO go home. OT Pain Assessment Pain When Pain Assessed At Rest Pain Present Pain Present Denied Pain M4 OT- IP ADL's Start: 07/19/22 12:20 Freq: Status: Active Protocol: Document 07/19/22 09:32 [facility] (Rec: 07/19/22 13:00 [facility] [id number]) OT [id number] General Evaluation Self-Feeding Ability Independent OT ADL-Grooming Comments OT Grooming Comments Not performed. OT ADL-Oral Care Comments Oral Care Comments Not performed. OT ADL-Dressing General Eval Lower Body Dressing Ability Independent Comments OT Dressing Comments Pt seeing double when looking down to wilma/doff her socks. OT ADL-Toileting Comments OT Toileting Comments Pt states has been able to do the toilet of her own. OT ADL-Bathing Comments OT Bathing Comments Pt has a shower stool at home to use if needed. M5 OT- IP IADL's Start: 07/19/22 12:20 Freq: Status: Active Protocol: Document 07/19/22 09:32 [facility] (Rec: 07/19/22 13:00 [facility] [id number]) OT-Instrumental Activities of Daily Living Home Safety Awareness Awareness of Need for Assistance at Home Good Awareness Ability to Problem Solve Emergency Able to Problem Solve Situations Home Safety Comments Pt has a very supportive to be able to provide supervision and assist as needed. M6 OT- IP Functional Cognition Start: 07/19/22 12:20 Freq: Status: Active Protocol: Document 07/19/22 09:32 [facility] (Rec: 07/19/22 13:00 [facility] [id number]) Cognitive Factors Limiting Selfcare Function Cognitive Ability Level of Alertness Alert Patient Orientation Name,Place,Situation Attention Span Ability Capable of Focused Attention, Capable of Sustained Attention Ability to Follow Commands Able to Follow Multi-Step Commands Memory Description No Deficits Noted Safety Awareness No Deficits Noted Problem Solving Ability No deficits Noted Executive Function Ability No Deficits Noted Cognitive Comments Cognitive Assessment Comments Pt scored 70 seconds on [place] Making Part B which is 80% for her age group and implies normal but not perfect for visual attention, speed of processing, executive functioning, mental flexibility and task switching . Pt seem intact for all cognitive needs. OT- Vision and Hearing OT- Hearing Assessment OT- Hearing Assessment WFL OT- Vision Assessment Visual Acuity Glasses For Reading Visual Attentiveness WFL Occular Pursuits WFL Visual Convergence WFL Visual Nunez WFL Diplopia Absent Vision Assessment Comments Pt only complains of double vision when looking down with her eyes independently on her head. However when moves her head down with her eyes , no double vision noted. M7 OT- IP Mobility and Balance Start: 07/19/22 12:20 Freq: Status: Active Protocol: Document 07/19/22 09:32 [facility] (Rec: 07/19/22 13:00 [facility] [id number]) OT- Bed Mobility Assessment Supine to Sit Supine to Sit Assist Independent Sit to Supine Sit to Supine Assist Independent OT-Transfer Assessment Sit to and From Stand Sit to and from Stand Independent Transfers Transfer Ability Independent OT- Balance Assessment Sitting Balance and Reactions Static Sitting Balance Ability Normal Dynamic Sitting Balance Ability Normal Standing Balance and Reactions Static Standing Balance Ability Normal Dynamic Standing Balance Ability Good Comments Other Balance Tests/Deviations/Treatment Noted for pt to be careful : when walking on uneven terrian and to move her head down with her eyes. Also suggested not to drive at this time until able to get her eyes checked out. M8 OT- IP Objective Assessments Start: 07/19/22 12:20 Freq: Status: Active Protocol: Document 07/19/22 09:32 [facility] (Rec: 07/19/22 13:00 [facility] [id number]) OT Gross Range of Motion Upper Extremity Range of Motion Assessment Within Functional Limits OT Strength Upper Extremity Strength Assessment Within Functional Limits OT- Coordination Assessment Upper Extremity Finger to Nose Test Within Functional Limits Finger Tapping Test Within Functional Limits OT-Muscle Tone Assessment Muscle Tone WNL Yes OT Sensation Assessment Comments Summary Comments intact light touch M9 OT- IP Assessment and Plan Start: 07/19/22 12:20 Freq: Status: Active Protocol: Document 07/19/22 09:32 [facility] (Rec: 07/19/22 13:00 [facility] [id number]) OT Summary Assessment and Plan Potential Rehabilitation Potential Excellent Analytic Complexity at Evaluation Low Summary Progress Towards Goals Safe For Discharge Assessment Summary Pt low complexity and main barrier is her vision. Pt has double vision when moving her eyes downwards. When pt moves her head and eyes at the same time does not see double. Goals OT-Other Goals Pt to be able to use compensatory vision strategies for ADl and mobility needs. Days to Meet Goals 1 Frequency of Treatment Frequency Of Treatment Once a Day Treatment Plan OT Treatment Plan Vision Retraining Discharge Recommendations OT Discharge Recommendations Home with Assistance Transportation Needs at Discharge Private Vehicle
[2022-07-19] MEDS: CLOPIDOGREL 75 MG TABLET PO (10:05)
[2022-07-19] MEDS: ASPIRIN EC 81 MG TABLET PO (10:05)
--- NOTE | 2022-07-19 12:27 | CM.DANOTE ---
DCP: Case received, EMR reviewed and met with patient. Spouse, Sonny, was at bedside. Introduced self and role. Was able to obtain information regarding patient's baseline activity status prior to hospitalization. DCP assessment completed with information currently available. Patient is a 72 year old female who admitted early this morning to the care of the hospitalist team. PCP: Dr. Alvarado. Payer: confirmed: Medicare/[employer]. Patient came to the hospital via private vehicle secondary to having visual problems, double vision. Patient had seen he eye physician, Dr. Devora Yancey, and was advised to come here to the hospital for an evaluation. Patient has had MRI, and is to be having echo today. Met with patient and spouse in the room. She is independent at her baseline. She and spouse both reside in [place]. She is independent at her baseline. She indicated, she notices her vision blurring like this when she looks down. Patient is scheduled for her echo today, she is hoping that if she discharges, it can be sooner, [place] Let her know that this DC Card Cutter Helper can bring this up during rounds to see if her echo can be done sooner. P: Patient is discharging home today with no needs. She has also already worked with Alba Bryan RN/Middle School Pe Teacher Discharge Planning/Care Management Discharge Assessment Start: 07/19/22 12:26 Freq: Status: Discharge Protocol: Document 07/19/22 12:26 (Rec: 07/19/22 12:27 [id number]) Discharge Planning Assessment Assigned Housekeeping Aide Rosie Bryan RN/Middle School Pe Teacher Advance Directives? Yes Advance Directives on File No History Provided By Patient,Medical Record Prior Living Arrangements House Household Members spouse Type of transporation used prior to Drives own vehicle admit Independent with ADL's Yes Is patient alert and oriented? Yes Caregiver for Another No Barriers to Discharge No Discharge Plan Home Transportation Arrangement Spouse Referrals Initiated None needed Whiteboard Updated in Patient Room with Yes name and ext. # of Housekeeping Aide Review Status In Process Next Review Type Continued Stay Review
== END 2022-07-19 10:48 | disposition home or self-care (01) ==
LOC: ED 19:27 → ICU 07-19 00:45 → AC 07-20 08:27
PROVIDERS: Admitting Provider Nurse Practitioner Family; Emergency Provider Emergency Medicine; Family Provider Family Medicine; PCP Family Medicine; Referring Provider Emergency Medicine; Visit Provider Nurse Practitioner Family
DX: H53.2 Diplopia (principal); Z20.822 Contact with and (suspected) exposure to COVID-19; Z87.891 Personal history of nicotine dependence
CPT/HCPCS: 36415; 70450; 70496; 70498; 70553; 71045; 80048; 80053; 80061; 80305; 81003; 82550; 82962; 83036; 83735; 83880; 84484; 85025; 85610; 85730; 87635; 93005; 93306; 97161; 97165; 99284; C9803; G0378; Q9967

== ENCOUNTER → 2022-10-02 10:52 | Outpatient (CLI) | payer MEDICARE, SELFPAY ==
[2022-10-02 11:44] LABS: COVID19 -Nasal RAPID Negative (Negative)
== END ==
PROVIDERS: Referring Provider Orthopaedic Surgery; Visit Provider Orthopaedic Surgery
DX: Z20.822 Contact with and (suspected) exposure to COVID-19 (principal)
CPT/HCPCS: 87635; C9803

== ENCOUNTER 2022-10-03 11:56 | Day surgery (SDC) | payer MEDICARE, SELFPAY ==
[2022-09-28 15:19] VITALS: BMI 29.7
[2022-10-03] VITALS (13 sets, daily range): BP systolic 109–135; BP diastolic 47–76; PULSE 69–94; RESP 11–18; TEMP 35.8–36.8; O2SAT 91–100; BMI 29.7
[2022-10-03] MEDS: ACETAMINOPHEN 325 MG TABLET 975 MG PO (12:56)
[2022-10-03] MEDS: PREGABALIN 75 MG CAPSULE PO (12:57)
[2022-10-03] MEDS: CELECOXIB 200 MG CAPSULE PO (12:57)
[2022-10-03] MEDS: LACTATED RINGERS 1,000 ML 42 ML IV (12:59)
[2022-10-03] MEDS: VANCOMYCIN 1,000 MG/200 ML PIGGYBACK 200 MG IV (13:04)
--- NOTE | 2022-10-03 13:43 | PM.HP.1 ---
History of Present Illness History of Present Illness Date Patient Seen: 10/03/22 Time Patient Seen: 13:43 Chief complaint: LEFT RAHEEM *OPB* Narrative: She she notes ongoing significant left hip pain. She has pain on a daily basis it interferes with her ability to stand and walk. It has been getting progressively worse. She notes constant pain and restrictions. She has a sense of instability her hip might buckle on her. She is tried conservative treatment and failed. 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) Hx of bilateral cataract extraction (2015) Hx of knee surgery (1963) Family & Social History Family History Mother Cancer Father Congestive heart failure Social History: household members spouse Prior Living Arrangements House Safety & Behavioral: Feels Safe in Current Yes Environment Been Physically Hurt or No Threatened By a Person Suicidal Ideation Description None Suicide Plan Description No Plan Tobacco & Substance use: Smoking Status Former smoker alcohol intake current alcohol intake frequency 0-2 drinks per day Substance Use Type does not use Meds Home Medications and Allergies Home Medications Medication Instructions Recorded Confirmed Type acetaminophen 500 mg tablet 500 mg PO BID PRN pain 01/23/22 10/03/22 History atorvastatin 40 mg tablet 40 mg PO BEDTIME #90 tabs 07/19/22 10/03/22 Rx Allergies Allergy/AdvReac Type Severity Reaction Status Date / Time egg Allergy Intermediate Vomiting Verified 10/03/22 13:03 latex [LATEX] Allergy Mild ITCHING Verified 10/03/22 13:03 Review of Systems Review of Systems Narrative: Denies fever chills, she is been feeling well. She is not having any ongoing medical issues. Exam Vital Signs (past 8 hours): - 10/03/22 13:15 Temperature 97.2 F L Pulse Rate 76 Respiratory Rate 16 Blood Pressure 114/76 Pulse Oximetry 96 Oxygen Delivery Method Room Air Oxygen Delivery Method Room Air Narrative Exam Narrative: HEENT is benign, she is alert and oriented, neck is supple, lungs are clear, cor regular rate and rhythm, abdomen benign, left hip marked pain with range of motion, skin intact, neurologically intact distally Objective Labs Labs: Severe left hip osteoarthritis on plain x-rays Assessment & Plan Assessment and plan (1) Osteoarthritis of left hip: Status: Acute Plan I have recommended a left total hip arthroplasty. The procedure alternatives risks benefits and complications were discussed in detail. We discussed different surgical approaches as well as options risks and benefits. She would strongly prefer to have an anterior approach. I told her that that is reasonable. She will use hoping to recover as quickly as possible. She has outpatient therapy organized. Risk of infection bleeding and neurological problems discussed. We would proceed with a left total hip arthroplasty. Time Spent With Patient Critical Care time: I spent a total of [] minutes of critical care time on this patient's care today; this time is exclusive of procedural time.
--- NOTE | 2022-10-03 13:47 | P.OP_ITS ---
Operative Date/Time/Diagnoses Date of procedure: 10/03/22 Time of procedure: 14:00 Pre-op diagnosis: Left total hip arthroplasty anterior approach Post-op diagnosis: same Procedure & Clinicians Procedure: Left total hip arthroplasty anterior approach Same procedure as scheduled: Yes Indications: The patient has had progressively worsening left hip pain with radiographic changes consistent with arthritis. Non-operative management has failed and the patient has requested total hip replacement. The risks, benefits and alternatives to surgery were discussed with the patient prior to proceeding. Risks discussed included, but were not limited to, failure to relieve pain, leg length discrepancy, dislocation, stiffness, infection, nerve damage, deep venous thrombosis, pulmonary embolism, stroke, coma, heart attack, permanent paralysis and , as well as the potential need for eventual revision of the prosthetic. Surgeon: Keri Lim Machine Maintenance Repairer: Jorge Rubio Anesthesia Type: General Operative Notes Findings: Severe left hip osteoarthritis, adequate stability Closure Type: primary Specimen(s): none sent Prosthetic devices, grafts, tissues, transplants, or devices: Lim and Nephew standard offset anthology size 6, size 50 R3 cup, neutral poly liner, 32 x -3 Oxinium femoral head, one 6.5 mm screw Estimated Blood Loss (mL): 250 Blood products transfused: none Procedure in detail: The patient was brought to the operating room. Patient was carefully positioned in the supine position. Time-out was performed and antibiotics were given. Anesthesia was induced. She was positioned in the on the table in order to allow hyperextension of the hip. The left lower extremity was prepped and draped in a standard sterile fashion. An anterior left hip incision was made 1 fingerbreadth lateral to the anterior superior iliac spine and extended distally towards the greater trochanter. Dissection was carried out through skin and subcutaneous tissues. Superficial hemostasis was achieved. The fascia over the tensor fascia dong was defined and incised with a knife. Two Allis clamps were used to grasp the fascia. Tensor fascia dong was retracted laterally. A gelpi retractor was placed. Dissection was carried out down along the neck. The circumflex vessels were carefully identified and cauterized with the Aqua Mantis. There was good visualization of the femoral neck. A Cobra was placed superior to the neck and the gluteus fibers were carefully stripped from that superior aspect of the capsule. A 2nd retractor was placed along the inferior aspect of the neck. The rectus insertion along the capsule was partially released. A 3rd retractor that was then gently placed over the rim of the acetabulum under the rectus. Capsule was carefully incised and released from the intertrochanteric line circumferentially superior to the mid sagittal line and inferiorly to the mid sagittal line until the lesser trochanter was palpable. A tag stitch was placed both in the superior and inferior limb of the capsular insertion. Along the acetabulum capsule was also released up to the mid sagittal 12:00 position. A portion of the labrum was resected. A saw was used to perform an osteotomy at the level of the intertrochanteric line and the junction of the superior femoral neck leaving approximately 1 finger breath of residual inferior neck above the lesser trochanter. A 2nd cut was made along the femoral neck at the base of the head and a napkin ring of neck was removed. Corkscrew was placed in the femoral head and the head was removed without difficulty. Retractors were then repositioned around the acetabulum. Residual labrum was resected and additional osteophytes were removed. A reamer that was 4 mm below the templated size was placed by hand in the acetabulum and it was reamed to centralize the acetabulum. It was then reamed up to 2 under the templated size and fluoroscopy was brought in to confirm the position of the reaming and depth of reaming. I reamed 1 under the anticipated size. A trial cup was placed and noted that it was appropriately sized and fluoroscopy confirmed position and depth. The component was open and inserted without difficulty fluoroscopic imaging was used to confirm that the cup had been adequately seated and was well positioned. It was further stabilized with a single screw. Neutral poly liner was placed. The cup was tested and noted to be stable. Attention was then directed to the femur. The femur was gently hyperextended additional capsular release was performed as needed in order to allow adequate visualization of the proximal femur with elevation of the femur. Patient was placed in a hyperextended slightly adducted position with maximum external rotation. Box osteotome was used to check for any residual neck as well as sclerotic bone along the trochanter. [place] pepper was placed in the femur. Additional broaching was performed. Canal finder was used to determine the alignment of the canal and position. Size 1 broach was placed. The canal was then appropriately broached up to the templated size as long as there was adequate stability of the broach and serial advancement of the broach without excessive impingement. Specific attention was directed at avoiding varus attempting to direct the distal aspect of the broach more anteriorly and avoiding excessive anteversion. Trial reduction showed acceptable range of motion, good stability, no posterior impingement, zoroastrian of leg length and appropriate lateral shuck. I also hyperflexed the hip and checked that there was no impingement anteriorly and there was good stability with flexion, adduction and internal rotation. Marcaine and Exparel were injected. The stem was placed without difficulty. Repeat trial reduction and x-ray showed acceptable overall position, length, and no evidence of the femoral fracture. Final head was placed. Wound was meticulously irrigated with normal saline. The hip was reduced and additional Exparel and Marcaine were injected. The capsule was closed with interrupted nonabsorbable sutures. The fascia of the tensor was closed with interrupted and running Vicryl. No drain was placed. Any tensor fascia dong muscle that appeared to be contused or injured which was a minimal amount was carefully resected. Capsule around the tensor was injected with Exparel and Marcaine. The skin was closed with barbed stitches for the subcutaneous tissue and skin. We also used surgical glue. The wound was dressed sterilely. Brief Betadine soak was also used and was meticulously irrigated with normal saline. Patient was transferred to recovery room in satisfactory condition. Complications: none Post-operative Condition: stable Disposition: Acute Care Plan for aftercare: The patient will be maintained on a standard total hip replacement protocol with weight bearing as tolerated and anterior hip precautions. The patient will receive Aspirin and sequential compression devices for DVT prophylaxis. The patient will be discharged home when safe for the home environment.
--- NOTE | 2022-10-03 14:00 | DI.RAD.S_ITS ---
PROCEDURE: XR HIP W PEL IF DONE LT 2V INDICATIONS: prosthesis placement TECHNIQUE: Fluoroscopic intraoperative images x4 of the left hip. COMPARISON: [facility], [facility], XR HIP W PEL IF DONE LT 2V, 10/03/2022, 17:19. FINDINGS: Left total hip arthroplasty projects in the expected location. No unexpected fracture is seen. IMPRESSION: Intraoperative guidance provided. Dictated by: Humberto Farris M.D. on 10/04/2022 at 7:47 Approved by: Humberto Farris M.D. on 10/04/2022 at 7:49
[2022-10-03] MEDS: CEFAZOLIN 2 GM/100 ML PREMIX 100 ML IV ×2 (14:37→23:36)
[2022-10-03] MEDS: TRANEXAMIC ACID 1,000 MG VIAL 1000 MG INJ (14:54)
--- NOTE | 2022-10-03 15:13 | SUR.OPER ---
Supine on padded [place] table with bilateral legs secured in padded positioning boots and suspended in positioning spars, operative leg in traction per surgeon. Head on one pillow. Arm on non-operative side secured on padded armboard <90 degrees abduction. Arm on operative side padded and resting across chest then secured with tape over sheet. Padded perineal post in place per surgeon.
[2022-10-03] MEDS: BUPIVACAINE LIPOSOME 266 MG/20 ML VIAL INJ (15:20)
[2022-10-03] MEDS: BUPIVACAINE 0.5% W/ EPI (PF) 30 ML VIAL INJ (15:22)
[2022-10-03] MEDS: HYDROMORPHONE 2 MG INJ IV ×4 (17:17→17:34)
--- NOTE | 2022-10-03 17:30 | DI.RAD.S_ITS ---
PROCEDURE: XR HIP W PEL IF DONE LT 2V INDICATIONS: LEFT TOTAL hip TECHNIQUE: 2 view(s) of the hip acquired. COMPARISON: [facility], [facility], XR HIP W PEL IF DONE LT 2V, 10/03/2022, 17:04. FINDINGS: Bones: Patient is status post left hip arthroplasty, with hardware components in expected positions. The hip joint appears congruent. The visualized bony structures appear intact. Mild to moderate right hip arthrosis. Soft tissues: Overlying postoperative changes are noted. No suspicious soft tissue densities. IMPRESSION: Postoperative changes following left hip arthroplasty. Dictated by: Darnell Osei M.D. on 10/03/2022 at 19:46 Approved by: Darnell Osei M.D. on 10/03/2022 at 19:47
[2022-10-03] MEDS: OXYCODONE IR 5 MG TABLET PO ×2 (17:41→18:43)
[2022-10-03] MEDS: LACTATED RINGERS 1,000 ML 125 ML IV (18:37)
[2022-10-03] MEDS: ACETAMINOPHEN 325 MG TABLET 650 MG PO ×2 (18:41→23:36)
[2022-10-03] MEDS: IBUPROFEN 400 MG TABLET PO ×2 (18:42→23:35)
--- NOTE | 2022-10-03 18:53 | PC.NURSE ---
Pt arrived from PACU at 181, A&Ox3. She denies numbness to BLE's +CMS. VSS, afebrile on RA. Pain reported to L hip 03/28, medicated with prn oxycodone and scheduled tylenol and ibuprofen. Aquacel to L hip C/D/I. LR running at 125ml/hr. She denies n/v taking po sips of ice and popsicle.
[2022-10-03] MEDS: DOCUSATE 100 MG CAPSULE PO (20:43)
[2022-10-03] MEDS: ATORVASTATIN 20 MG TABLET 40 MG PO (20:43)
[2022-10-03] MEDS: ASPIRIN EC 81 MG TABLET PO (20:43)
--- NOTE | 2022-10-03 21:53 | PC.NURSE ---
Pillow placed on L side, between legs, under L calf w/ heel floated.
--- NOTE | 2022-10-04 00:13 | PC.NURSE ---
Addendum entered by Boubacar Rapp R.N. 10/04/22 02:40: Woke pt to use bedside commode, 300ml output w 300ml showing on bladder scan post-void. Will continue to wake pt up to urinate. Original Note: No urge to urinate, at 2200 pt got up to commode w/ 100ml output. Bladder scan showed around 250mls. Will encourage urination again soon and bladder scan post-void.
[2022-10-04] MEDS: LACTATED RINGERS 1,000 ML 125 ML IV (03:32)
[2022-10-04 05:28] VITALS: BP 101/54; PULSE 88; RESP 18; TEMP 36.6; O2SAT 97
[2022-10-04 05:49] LABS: Hematocrit 33.2 % (36-46); Hemoglobin 11.1 g/dL (12.0-16.0)
[2022-10-04] MEDS: IBUPROFEN 400 MG TABLET PO ×2 (05:56→11:05)
[2022-10-04] MEDS: ACETAMINOPHEN 325 MG TABLET 650 MG PO ×2 (05:57→11:05)
[2022-10-04] MEDS: CEFAZOLIN 2 GM/100 ML PREMIX 100 ML IV (05:59)
--- NOTE | 2022-10-04 08:16 | PM.DS.1 ---
History of Present Illness History of Present Illness Date Patient Seen: 10/04/22 Time Patient Seen: 08:17 Chief complaint: LEFT RAHEEM *OPB* Narrative: Patient is complaining of mild left hip pain this morning. She denies any new numbness or tingling. No nausea or vomiting. Overall she is feeling well like to be discharged home to [place] today. Discharge Providers Provider Discharge Date: 10/04/22 Primary care physician: Ana Fuentes PA-C Consults: 10/03/22 06:00 Consult to Anesthesiology Routine Comment: Consulting Provider: Anesthesiologist Reason for consultation: Regional block for post operative pain control 10/03/22 18:19 Consult to Discharge Planning Routine Comment: Consult to Physical Therapy Evaluate & Treat Comment: Physician Instructions: post op RAHEEM protocol Discharge provider: Suzan Stearns PA-C Summary Hospital Course Discharge Diagnosis: Left hip osteoarthritis Hospital Course: Operative Date/Time/Diagnoses Date of procedure: 10/03/22 Time of procedure: 14:00 Procedure & Clinicians Procedure: Left total hip arthroplasty anterior approach Same procedure as scheduled: Yes Indications: The patient has had progressively worsening left hip pain with radiographic changes consistent with arthritis. Non-operative management has failed and the patient has requested total hip replacement. The risks, benefits and alternatives to surgery were discussed with the patient prior to proceeding. Risks discussed included, but were not limited to, failure to relieve pain, leg length discrepancy, dislocation, stiffness, infection, nerve damage, deep venous thrombosis, pulmonary embolism, stroke, coma, heart attack, permanent paralysis and , as well as the potential need for eventual revision of the prosthetic. Surgeon: Keri Lim Sports Fitness And Wellness Director: Jorge Rubio Anesthesia Type: General Operative Notes Findings: Severe left hip osteoarthritis, adequate stability Closure Type: primary Specimen(s): none sent Prosthetic devices, grafts, tissues, transplants, or devices: Lim and Nephew standard offset anthology size 6, size 50 R3 cup, neutral poly liner, 32 x -3 Oxinium femoral head, one 6.5 mm screw Estimated Blood Loss (mL): 250 Blood products transfused: none Status at Discharge Cognitive/behavioral status at discharge: at baseline, oriented Functional status at discharge: uses cane/walker Overall status at discharge: patient is progressing back to baseline Exam Vital Signs (past 8 hours): - 10/04/22 05:28 Temperature 97.8 F Pulse Rate 88 Respiratory Rate 18 Blood Pressure 101/54 L Pulse Oximetry 97 Oxygen Flow Rate 2 Oxygen Delivery Method Nasal Cannula Oxygen Flow Rate 2 Narrative Exam Narrative: Pleasant 72-year-old female, resting comfortably in bed, no acute distress. Left anterior hip incision is clean, dry, intact. There is no surrounding erythema, induration, or holly pus. Bilateral lower extremity: Motor functions are grossly intact, sensation is grossly intact to light touch, calves are soft and nontender to palpation. Objective Labs Result Diagrams: 10/04/22 05:13 Labs: Laboratory Results - last 24 hr 10/04/22 05:13 Hgb 11.1 L Hct 33.2 L PFSH Medical History Asthma Osteoarthritis Pre-diabetes Surgical History History of total right knee replacement (02/01/22) Hx of bilateral cataract extraction (2015) Hx of knee surgery (1963) Family History Mother Cancer Father Congestive heart failure Social History household members: spouse Smoking Status: Former smoker alcohol intake: current Discharge Assessment & Plan Assessment and Plan Assessment: -stable status post left total hip arthroplasty via the anterior approach Plan of Treatment: -mobilize with PT. Maintain anterior hip precautions x6 weeks -continue multimodal pain management -continue with aspirin 81 mg twice daily x6 weeks for DVT prophylaxis -DC home today to Sunday when cleared by PT Discharge Plan Discharge Plan Patient Disposition: Home Discharge orders & Medications Discharge Orders: Discharge (Order); Ordered 10/04/22 Ordered By: Suzan Stearns Prescriptions: New acetaminophen 500 mg capsule 1,000 mg PO Q8HR MDD Max 3000 mg per day PRN (Reason: fever or pain) Qty: 90 0RF aspirin 81 mg Tablet,Delayed Release (Dr/Ec) 81 mg PO BID 42 Days Qty: 84 0RF Rx Instructions: Prevent blood clots docusate sodium 100 mg Capsule 100 mg PO BID PRN (Reason: Constipation from narcotic pain meds) Qty: 20 0RF ibuprofen 400 mg Tablet 400 mg PO Q6HR MDD Max 2400 mg per day PRN (Reason: Pain/inflammation) Qty: 90 0RF oxycodone 5 mg Tablet 5 mg PO Q3HR PRN (Reason: Pain, Moderate (4-6)) Qty: 42 0RF Continued atorvastatin 40 mg tablet 40 mg PO BEDTIME Qty: 90 0RF Discontinued acetaminophen 500 mg Tablet 500 mg PO BID PRN (Reason: pain) Follow up/Referrals: Ana Fuentes PA-C [Primary Care Provider] - Keri Lim MD [Physician] - As previously scheduled (Follow up w/ Jorge Rubio PA-C on 10/16/2022 @ 1:20 pm at [facility] office in [place].) Diet/Activity/Treatments Diet: Diet as Tolerated Activity: Weight bearing as tolerated to left leg. Anterior hip precautions x6 weeks. Cold/Heat Therapy: Ice to hip as needed for pain. Skin/Wound/Dressing Care Report to your healthcare provider any signs of infection, such as:: chills, fever, night sweats, unusual drainage and unusual redness Dressing: May shower. Keep Aquacel dressing in place until follow up appointment. No bathing or otherwise soaking incision. Visit Report/Discharge Packet Instructions: DI for Hip Replacement Stand Alone Forms: Surgery Discharge Discharge Data Primary Care Provider: Ana Fuentes Attending Provider: Keri Lim
[2022-10-04 08:33] VITALS: BP 100/50; PULSE 70; RESP 16; TEMP 36; O2SAT 98
[2022-10-04] MEDS: DOCUSATE 100 MG CAPSULE PO (08:44)
[2022-10-04] MEDS: ASPIRIN EC 81 MG TABLET PO (08:44)
--- NOTE | 2022-10-04 10:22 | PT.IIE ---
Current Diagnoses Unilateral primary osteoarthritis, left hip (10/03/22) Surgery Performed Operation Date: 10/03/22 14:15 Actual Procedures p Total Hip Arthroplasty/Anterior Approach(Left) - Keri Lim MD Surgical History (Last Reviewed 10/04/22 @ 08:18 by Suzan Stearns PA-C) History of total right knee replacement (02/01/22) Hx of bilateral cataract extraction (2015) Hx of knee surgery (1963) Medical History (Last Reviewed 10/04/22 @ 08:18 by Suzan Stearns PA-C) Asthma Osteoarthritis Pre-diabetes Physical Therapy Inpatient Evaluation/Re-Eval M1 PT/OT-IP Prior Functional Status Start: 10/04/22 11:01 Freq: NEEDED Status: Active Protocol: Document 10/04/22 10:22 DLM (Rec: 10/04/22 11:16 DLM [id number]) Medical Review Prior Functional Status Medical History Reviewed Yes Diet/Fluid Consistency Regular Communication WFL Mobility and Gait Independent without device, likes to hike, garden and chop wood, her hip pain was limiting her activity before surgery, she recovered well from her right TKA in January 2022 Activities of Daily Living and IADL's Independent Prior Functional Level (Other details) 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 5 with rails both sides, too wide to use both Home Environment High Toilet,Walk in Shower Home Equipment Front Wheel Walker,Straight Cane,Crutches,Grab Bars Near Toilet Additional Social History Comment has trekking poles M2 PT-IP Current Condition Start: 10/04/22 11:01 Freq: NEEDED Status: Active Protocol: Document 10/04/22 10:22 DLM (Rec: 10/04/22 11:16 DLM [id number]) Physical Therapy Current Condition Current Condition Evaluation Date 10/04/22 Treatment Diagnosis left RAHEEM, anterior approach, impaired mobility/gait Onset Date 10/03/22 M3 PT-IP Subjective Start: 10/04/22 11:01 Freq: NEEDED Status: Active Protocol: Document 10/04/22 10:22 DLM (Rec: 10/04/22 11:16 DLM [id number]) Subjective Physical Therapy Visit Type Type Progress Note Visit Start Time 09:20 Visit Stop Time 10:22 Total Visit Minutes 62 Number of STAFFING MGR Visits 0 Physical Therapy Visit Comments Patient Comments She feels like she is safe to go home today, has to take a ferry to get home Patient Goals Discharge home with her Therapy Pain Assessment Pain When Pain Assessed After Treatment Pain Present Pain Present Pain Reported Location Left Hip Intensity 3 Scale Used Numeric (0 - 10) Description Aching,Tender,With Movement Pain Behaviors Guarding Pain Management Techniques Re-positioning,Timing of Activity with Medications M4 PT-IP Mobility and Gait Start: 10/04/22 11:01 Freq: NEEDED Status: Active Protocol: Document 10/04/22 10:22 DLM (Rec: 10/04/22 11:16 DL [id number]) PT-Bed Mobility Assessment Supine to Sit Supine to Sit Independent Sit to Supine Sit to Supine Independent Scooting Scooting to Edge of Bed Independent Scooting Up and Down in Bed Independent PT-Transfer Assessment Sit to and From Stand Sit to and from Stand Independent,Use of Upper Extremities Equipment Transfer Assistive Device Gait Belt,Front Wheeled Walker Transfers Transfer Destination Bed,Chair Transfer Technique Stand Step Pivot Transfer Ability Level of Assist Independent,Use of Upper Extremities Comments Mobility Comments Pt left up in recliner at the end of this visit with her Spouse visiting Gait Assessment Gait Gait Assistance Required: Independent Distance (Feet) 220 Able to Maintain Weight Bearing Status Yes During Gait Assistive Devices Assistive Device Gait Belt,Front Wheeled Walker Gait Deviations General Gait Pattern Antalgic,Decreased Stride Length Factors Limiting Gait Function Factors Limiting Gait Function Decreased Activity Tolerance, Decreased Strength,Limited Range of Motion,Pain,Poor Balance Comments Gait Comments Gait training performed, pt tends to lanch up on right LE (heel raise) to advance the left LE. Stair Climbing Assessment Evaluation Level of Assist On Stairs Standby Assistance Devices Stair Climbing Assistive Devices Left Railing,Right Railing Technique/Endurance Stair Climbing Direction Ascend and Descend Stair Climbing Technique Step to Step Number of Steps Climbed 3 Query Text: Stair Climbing Set # Repetitions (reps) 1 Comments Stair Climbing Comments educated pt on correct sequencing for stairs PT-Balance Assessment Sitting Balance and Reactions Static Sitting Balance Ability Normal Dynamic Sitting Balance Ability Normal Standing Balance and Reactions Static Standing Balance Ability Good Dynamic Standing Balance Ability Good Device Used FWW M5 PT-IP Objective Assessments Start: 10/04/22 11:01 Freq: NEEDED Status: Active Protocol: Document 10/04/22 10:22 DL (Rec: 10/04/22 11:16 [facility] [id number]) Orientation Orientation/Cognition Level of Alertness Alert Orientation Name,Age,Birthday,Month,Date, Year,Day of Week,Place, Situation Language Function Ability No Deficits Noted Safety Awareness Understands Safety Issues Memory Description No Deficits Noted Gross Range of Motion Upper Extremity ROM Assessment Within Functional Limits Lower Extremity ROM Assessment Left Impaired Impairments anterior hip precautions on left Strength Upper Extremity Strength Assessment Within Functional Limits Lower Extremity Strength Assessment Left Impaired Hip pain with hip flexion, 3+/5 Knee 4/5 Ankle DF 5/5 Comments Strength Comments left hip pain post-op limits functional strength Coordination Assessment Gross Coordination Gross Coordination WNL Sensation Assessment Sensation Gross Sensation WNL Muscle Tone Muscle Tone WNL Yes M6 PT-IP Treatment Start: 10/04/22 11:01 Freq: NEEDED Status: Active Protocol: Document 10/04/22 10:22 DLAllen (Rec: 10/04/22 11:16 [facility] [id number]) Physical Therapy Treatment Exercises Exercises Ankle Pumps,Gluteal Sets,Quad Sets,Heel Slides Education Education Provided Precautions,Weight Bearing Status,Post-Op Packet,Safety Other Treatments Other Treatment Performed Her Spouse arrived near the end of this visit and answered his questions as well as the patient's questions. Reviewed post-op packet and HEP. M7 PT-IP Assessment and Plan Start: 10/04/22 11:01 Freq: NEEDED Status: Active Protocol: Document 10/04/22 10:22 RADHA (Rec: 10/04/22 11:16 [facility] [id number]) PT Summary Assessment and Plan Potential Rehabilitation Potential Excellent Status of Condition at Evaluation Evolving Summary Impairments Pain,ROM,Strength,Balance,Bed Mobility,Transfers,Gait, Activity Tolerance Assessment Summary Mary Anne is progressing well today post-op day one. With training she is able to demonstrate independent mobility and gait with the FWW . She tolerated gait in the alonso well. She appears to understand her anterior hip precautions. She has a supportive Spouse to assist at home as needed. No nausea nor dizziness this visit. She appears safe to discharge home today when medically cleared. Goals Bed Mobility Goal Independent Transfer Goal Independent,Front Wheeled Walker Gait Goal Independent,Front Wheel Walker Gait Distance 150 Other Goals up and down 3 steps with SBA and rails Days to Meet Goals 1 Frequency of Treatment Frequency Of Treatment Discharge Treatment Plan Other Recommendations and Next Treatment training completed this visit Focus Precautions Anterior Hip Precautions No Hip Extension,No Hip External Rotation Weight Bearing Status Weight Bearing Status Weight Bear as Tolerated Recommendations To Nursing Amount of Assist Needed Independent Discharge Recommendations PT Discharge Recommendations Home,Outpatient PT Other Discharge Recommendations She is going home with support of her Spouse, she has out-pt PT scheduled for 10/10/22 Transportation Needs at Discharge Private Vehicle
[2022-10-04] MEDS: OXYCODONE IR 5 MG TABLET PO (12:59)
--- NOTE | 2022-10-04 13:39 | PC.NURSE ---
Day shift: Pt left unit via WC at approx 1345. Paperwork signed and all questions answered. VS remain WNL. Pain has been well controlled per MAR. Dressing CDI and CMS intact. They have ferry boarding paperwork too. scripts sent to Pt's pharmacy electronic. Pt's Spouse is driving them home. Pt has all personal belongings.
== END 2022-10-04 13:41 | disposition home or self-care (01) ==
LOC: OR 11:58 → AC 11:58
PROVIDERS: PCP Physician Assistant Medical; Referring Provider Orthopaedic Surgery; Visit Provider Orthopaedic Surgery
PROC: (CPT 27130; principal; 2022-10-03 14:15)
DX: M16.12 Unilateral primary osteoarthritis, left hip (principal)
CPT/HCPCS: 27130; 36415; 73502; 76000; 85014; 85018; 94762; 97110; 97116; 97162; C1776; C9290; J0690; J1100; J1170; J2405; J2704; J3010